=== PATIENT | male | born 1960 | race American Indian/Alaskan Native ===

== ENCOUNTER 2016-12-04 09:57 | Emergency (ER) | payer SELFPAY ==
[2016-12-04] MEDS ORDERED: ZOFRAN ODT PO ONE (11:05)
--- NOTE | 2016-12-04 11:06 | Emergency Department Report ---
Chief Complaint: Nausea/Vomiting/Diarrhea Stated Complaint: DIARRHEA/DIZZINESS X 1 WK Time Seen by Provider: 12/04/16 11:01 - HPI History of Present Illness: Patient reports N/V/D and lightheadedness that started one week ago - ROS Review of Systems: all other systems are unremarkable except for documentation in HPI - Exam Vital Signs: Vital Signs 12/04/16 10:39 Temperature 97.8 F Pulse Rate 125 H Respiratory 20 Rate Blood Pressure 125/89 O2 Sat by Pulse 100 Oximetry Physical Exam: Gen: well developed and nourished, NAD Abd: soft, nondistended, bowel sounds present, tenderness to palpation RUQ, no rebound, guarding or rigid MSE screening note: Focused history and physical exam performed. Due to findings the following was ordered: antiemetic, laboratory and radiology studies ordered ED Disposition for MSE Condition: Stable
[2016-12-04 11:44] LABS: Basophils % (Auto) 0.8 % (0.0-1.8); Eosinophils % (Auto) 3.3 % (0.0-4.3); Hematocrit 46.3 % (35.5-45.6); Hemoglobin 15.1 gm/dl (11.8-15.2); Mean Corpuscular HGB Conc 33 % (32-34); Mean Corpuscular Hemoglobin 32 pg (28-32); Mean Corpuscular Volume 99 fl (84-94); Platelet Count 165 K/mm3 (140-440); Red Blood Count 4.68 M/mm3 (3.65-5.03); Red Cell Distribution Width 14.1 % (13.2-15.2); White Blood Count 7.7 K/mm3 (4.5-11.0)
--- NOTE | 2016-12-04 11:56 | XRay Report ---
ROUTINE CHEST, TWO VIEWS: HISTORY: Lightheadedness, syncope. The trachea, heart, mediastinal contour, lung caro and bony thorax are unremarkable. IMPRESSION: Unremarkable chest x-ray.
[2016-12-04 12:02] LABS: Bilirubin,Urine NEG (Negative); Blood,Urine NEG (Negative); Ketones,Urine TR mg/dL (Negative); Leukocyte Esterase,Urine MOD (Negative); Nitrite,Urine NEG (Negative)
[2016-12-04 12:12] LABS: Alanine Aminotransferase 68 units/L (7-56); Albumin 3.7 g/dL (3.9-5); Albumin/Globulin Ratio 0.7 %; Alkaline Phosphatase 158 units/L (35-129); Anion Gap 20 mmol/L; Blood Urea Nitrogen 18 mg/dL (9-20); Carbon Dioxide 18 mmol/L (22-30); Chloride 100.4 mmol/L (98-107); Glucose 142 mg/dL (75-100); Potassium 4.3 mmol/L (3.6-5.0); Sodium 134 mmol/L (137-145)
[2016-12-04] MEDS ORDERED: NACL 0.9% 1000 ML 1,000 ML IV ONE (20:12)
[2016-12-04] MEDS ORDERED: ZOFRAN IV ONE (20:12)
[2016-12-04 20:17] VITALS: BP 121/90
--- NOTE | 2016-12-04 20:21 | Emergency Department Report ---
HPI - General Chief Complaint: Nausea/Vomiting/Diarrhea Time Seen by Provider: 12/04/16 20:01 - HPI HPI: This is a 56-year-old Afro-[place] male presents to the emergency department from home with complaint of a one-week history of nausea, vomiting, diarrhea. Or recently started to develop some right-sided abdominal pain. He also has some associated generalized dizziness and weakness. He denies any fever, back pain, dysuria or discharge. The pain is a gas-like pain and intermittent. Patient has a history of cirrhosis, gallstones. He does not have a primary care doctor. He has not taken anything for symptoms prior to presentation as he cannot keep anything down. No recent travel or sick contacts at home. ED Past Medical Hx - Medications Home Medications: Home Medications Medication Instructions Recorded Confirmed Last Taken Type Ondansetron [Zofran Odt] 4 mg PO Q6H PRN #10 tab.rapdis 12/04/16 Unknown Rx ED Review of Systems ROS: Stated complaint: DIARRHEA/DIZZINESS X 1 WK Other details as noted in HPI Comment: All other systems reviewed and negative Constitutional: denies: chills, fever Eyes: denies: eye pain, eye discharge, vision change ENT: denies: ear pain, throat pain Respiratory: denies: cough, shortness of breath, wheezing Cardiovascular: denies: chest pain, palpitations Gastrointestinal: abdominal pain, nausea, vomiting, diarrhea Genitourinary: denies: urgency, dysuria Musculoskeletal: denies: back pain, joint swelling, arthralgia Skin: denies: rash, lesions Neurological: denies: headache, weakness, paresthesias Physical Exam - Physical Exam Vital Signs: Vital Signs 12/04/16 12/04/16 10:39 20:16 Temperature 97.8 F 98.1 F Pulse Rate 125 H 109 H Respiratory 20 18 Rate Blood Pressure 125/89 Blood Pressure 121/90 [Right] O2 Sat by Pulse 100 98 Oximetry Physical Exam: GENERAL: The patient is well-developed well-nourished. HEENT: Normocephalic. Atraumatic. Extraocular motions are intact. Patient has moist mucous membranes. Pupils equal reactive to light bilateral. NECK: Supple. Trachea is midline. CHEST/LUNGS: Clear to auscultation. There is no respiratory distress noted. HEART/CARDIOVASCULAR: Regular. There is mild tachycardia. There is no gallop rub or murmur. ABDOMEN: Abdomen is soft, nontender. No guarding rebound tenderness. No peritoneal signs. Patient has normal bowel sounds. There is no abdominal distention. SKIN: There is no rash. There is no edema. There is no diaphoresis. NEURO: The patient is awake, alert, and oriented. The patient is cooperative. The patient has no focal neurologic deficits. The patient has normal speech. MUSCULOSKELETAL: There is no tenderness or deformity. There is no limitation range of motion. There is no evidence of acute injury. ED Course Vital Signs 12/04/16 12/04/16 10:39 20:16 Temperature 97.8 F 98.1 F Pulse Rate 125 H 109 H Respiratory 20 18 Rate Blood Pressure 125/89 Blood Pressure 121/90 [Right] O2 Sat by Pulse 100 98 Oximetry ED Medical Decision Making - Lab Data Result diagrams: 12/04/16 11:31 12/04/16 11:31 - Radiology Data Radiology results: image reviewed interpreted by me: Chest x-ray did not show any acute process. Heart is normal shape and size. No effusions. No pneumothorax. No signs of pneumonia seen. Abdominal x-ray does not show any signs of obstruction or any acute process. - Medical Decision Making 56-year-old male presents with a one-week history of nausea, vomiting and diarrhea. He has some mild abdominal discomfort. Patient's labs show slight elevation in his transaminase and lipase but I believe this is secondary to the copious vomiting he has. Patient presents with some tachycardia that is most likely secondary to dehydration. Patient was given Zofran for nausea and IV fluid resuscitation. Upon reevaluation the patient's heart rate has normalized and the patient no longer complains of any nausea and there has been no vomiting within the emergency department. There is also not been any episodes of diarrhea. Vitals have been stable including being afebrile. Labs did not show any leukocytosis. Urinalysis does not show any infection or significant amount of ketones. Patient was able to drink 2 different glasses of water and keep it down without any vomiting or recurrence of the nausea. He'll be discharged home with Zofran ODT, referrals for primary care. We have discussed increasing oral rehydration and starting with the brat diet once he is wanting to eat. - Differential Diagnosis gastroenteritis, colitis, food poisoning, gastritis Critical Care Time: No Critical care attestation.: If time is entered above; I have spent that time in minutes in the direct care of this critically ill patient, excluding procedure time. ED Disposition Clinical Impression: Dehydration Nausea & vomiting Qualifiers: Vomiting type: unspecified Vomiting Intractability: non-intractable Qualified Code(s): R11.2 - Nausea with vomiting, unspecified Diarrhea Qualifiers: Diarrhea type: unspecified type Qualified Code(s): R19.7 - Diarrhea, unspecified Abdominal pain Qualifiers: Abdominal location: unspecified location Qualified Code(s): R10.9 - Unspecified abdominal pain Abdominal pain Qualifiers: Abdominal location: unspecified location Qualified Code(s): R10.9 - Unspecified abdominal pain Disposition: DISCHARGED TO HOME OR SELFCARE Is pt being admited?: No Does the pt Need Aspirin: No Condition: Stable Instructions: Abdominal Pain (ED), Acute Nausea and Vomiting (ED), Acute Diarrhea (ED), Dehydration (ED) Additional Instructions: Please increase your oral rehydration. Once you are wanting to start eating again, I suggest staying away from foods that are spicy, fried or harsh on the stomach. Instead try things like bananas, rice, applesauce and toast. Return to the emergency department with any worsening of your symptoms or any acute distress. Prescriptions: Ondansetron [Zofran Odt] 4 mg PO Q6H PRN #10 tab.rapdis PRN Reason: Nausea Referrals: PRIMARY MD AMY [Primary Care Provider] - 3-5 Days LIA CHRISTENSEN MD [Staff Physician] - 3-5 Days [facility] [Outside] - 3-5 Days Time of Disposition: 22:41
--- NOTE | 2016-12-05 08:01 | XRay Report ---
ABDOMEN TWO VIEWS: History: Abdominal pain, vomiting, diarrhea. There is no evidence of free air beneath the diaphragms. The gas pattern within the abdomen is unremarkable. There is no evidence of bowel dilatation, significant air-fluid levels, or masses. The psoas margins are adequately visualized. IMPRESSION: Unremarkable abdomen.
== END 2016-12-04 22:58 | disposition home or self-care (01) ==
LOC: ED 09:57
DX: E86.0 Dehydration (principal); R11.2 Nausea with vomiting, unspecified; R19.7 Diarrhea, unspecified; R10.9 Unspecified abdominal pain
CPT/HCPCS: 36415; 71020; 74020; 80053; 81001; 83690; 84484; 85025; 96361; 96374; 99285; J2405; J7030; Q0162

== ENCOUNTER 2019-01-08 11:58 | Emergency (ER) | payer SELFPAY ==
[2019-01-08] MEDS ORDERED: SUBLIMAZE IV ONE (12:42)
[2019-01-08] MEDS ORDERED: NACL 0.9% 1000 ML 1,000 ML IV ONE (12:42)
--- NOTE | 2019-01-08 12:43 | Emergency Department Report ---
ED General Adult HPI - General Chief complaint: Abdominal Pain Stated complaint: RIGHT SIDE PAIN RADIATING TO BACK Time Seen by Provider: 01/08/19 12:25 Source: patient, EMS (ems notes not available at time of chart dictation), RN notes reviewed, old records reviewed Mode of arrival: Stretcher Limitations: No Limitations - History of Present Illness Initial comments: This is a 58-year-old gentleman is not known to this provider previously. He reports a history of kidney stones and cirrhosis. The patient presents to the emergency room with a complaint of nontraumatic right sacroiliac pain, right gluteal pain, and right flank abdominal pain. His pain is sharp and aching, present for 7 days, intermittent, radiates from the flank to the gluteal region and backup, increases with palpation and decreases with rest. He endorses dark colored urine. He denies severe headache, neck pain, chest pain, left-sided abdominal pain, fevers, chills, vomiting, dysuria. The patient's not sure if he is taking any pain medication. There is no trauma. The patient is somewhat of a poor historian and somewhat disorganized. -: Gradual Location: abdomen, right, lower extremity Radiation: extremity Severity scale (0 -10): 8 Quality: aching Consistency: other Improves with: other Worsens with: other Associated Symptoms: loss of appetite, other. denies: confusion, chest pain, cough, diaphoresis, fever/chills, headaches, malaise, nausea/vomiting, rash, seizure, shortness of breath, syncope, weakness - Related Data Previous Rx's Medication Instructions Recorded Last Taken Type Ibuprofen [Motrin] 600 mg PO Q8H PRN #30 tablet 01/08/19 Unknown Rx Magnesium Oxide 400 mg PO QDAY #14 tablet 01/08/19 Unknown Rx Potassium Chloride 20 meq PO BID #28 packet 01/08/19 Unknown Rx levoFLOXacin [Levaquin] 750 mg PO QDAY #6 tablet 01/08/19 Unknown Rx Allergies Allergy/AdvReac Type Severity Reaction Status Date / Time No Known Allergies Allergy Unverified 12/04/16 11:12 ED Review of Systems ROS: Stated complaint: RIGHT SIDE PAIN RADIATING TO BACK Other details as noted in HPI Constitutional: denies: fever Eyes: denies: vision change ENT: denies: epistaxis Respiratory: denies: cough Cardiovascular: denies: chest pain Gastrointestinal: abdominal pain Genitourinary: hematuria Musculoskeletal: back pain, arthralgia Neurological: denies: as per HPI, headache Psychiatric: anxiety ED Past Medical Hx - Past Medical History Previous Medical History?: Yes Hx Kidney Stones: Yes Additional medical history: Hx of gallstones, cirrhosis of the liver - Surgical History Past Surgical History?: No - Social History Smoking Status: Current Every Day Smoker Substance Use Type: Alcohol - Medications Home Medications: Home Medications Medication Instructions Recorded Confirmed Last Taken Type Ibuprofen [Motrin] 600 mg PO Q8H PRN #30 tablet 01/08/19 Unknown Rx Magnesium Oxide 400 mg PO QDAY #14 tablet 01/08/19 Unknown Rx Potassium Chloride 20 meq PO BID #28 packet 01/08/19 Unknown Rx levoFLOXacin [Levaquin] 750 mg PO QDAY #6 tablet 01/08/19 Unknown Rx ED Physical Exam - General Limitations: No Limitations General appearance: alert, anxious - Head Head exam: Present: atraumatic, normocephalic - Eye Eye exam: Present: normal appearance, EOMI. Absent: nystagmus - ENT ENT exam: Present: normal exam, normal orophraynx, mucous membranes moist, normal external ear exam - Neck Neck exam: Present: normal inspection, full ROM. Absent: tenderness, meningismus - Respiratory Respiratory exam: Present: normal lung sounds bilaterally. Absent: respiratory distress, wheezes, rales, rhonchi, stridor, chest wall tenderness - Cardiovascular Cardiovascular Exam: Present: normal rhythm, tachycardia, normal heart sounds. Absent: systolic murmur, diastolic murmur, rubs, gallop - GI/Abdominal GI/Abdominal exam: Present: soft, tenderness, other (there is right flank tenderness, minimal, with no rebound, guarding or peritoneal signs). Absent: distended, guarding, rebound, rigid, pulsatile mass - Rectal Rectal exam: Present: normal inspection, other (gluteal compartment soft. There is reproducible right sided sacroiliac tenderness, with no redness, pus, streaking. Chaperoned by Alvina Montanez) - Extremities Exam Extremities exam: Present: normal inspection, full ROM, other (2+ pulses noted in the bilateral upper, lower extremities. Compartments soft. No long bony tenderness. The pelvis is stable.). Absent: pedal edema, joint swelling, calf tenderness - Back Exam Back exam: Present: normal inspection, full ROM, paraspinal tenderness. Absent: tenderness, CVA tenderness (R), vertebral tenderness - Neurological Exam Neurological exam: Present: alert, CN II-XII intact, other (Extraocular movements intact. Tongue midline. No facial droop. Facial sensation intact to light touch in the V1, V2, V3 distribution bilaterally. 5 and 5 strength in 4 extremities.. Sensation is intact to light touch in 4 extremities.). Absent: motor sensory deficit - Psychiatric Psychiatric exam: Present: anxious - Skin Skin exam: Present: warm, dry, intact, normal color. Absent: rash ED Course Vital Signs 01/08/19 01/08/19 01/08/19 12:05 12:08 13:09 Temperature 98.1 F 97.7 F Pulse Rate 101 H 100 H Respiratory 15 16 16 Rate Blood Pressure 98/67 Blood Pressure 98/67 [Right] O2 Sat by Pulse 95 97 Oximetry 01/08/19 01/08/19 01/08/19 13:39 15:49 16:10 Temperature 97.9 F 97.7 F Pulse Rate 70 68 Respiratory 17 18 17 Rate Blood Pressure Blood Pressure 127/98 130/80 [Right] O2 Sat by Pulse 97 97 Oximetry 01/08/19 16:36 Temperature Pulse Rate Respiratory 14 Rate Blood Pressure Blood Pressure [Right] O2 Sat by Pulse Oximetry - Reevaluation(s) Reevaluation #1: 01/08/19 14:10 Differential diagnosis, including not limited to: Sacroiliitis, musculoskeletal gluteal pain, renal colic, nephrolithiasis, biliary colic, colitis, perforated viscus, a urinary tract infection Assessment and plan: 58-year-old gentleman with reproducible right-sided sacroiliac tenderness, and nonspecific abdominal patient afebrile, tachycardic with blood pressure in the high 90s. We will treat the patient's pain, give IV fluids, obtain pelvis x-ray, and CT scan of the abdomen and pelvis. We will kyler ssess after his initial data points. Patient is clinically sober at this time. Urinalysis is reviewed and appreciated. We will determine antibiotic therapy once his diagnostic studies have resulted. 01/08/19 14:11 Reevaluation #2: 01/08/19 18:39 Laboratory studies are reviewed and appreciated. Has transaminitis which we would expect. He is also hypokalemic and hypomagnesemic. His objective imaging does not demonstrate any emergent condition. He is currently eating and tolerating liquid feeds, and indicates that he feels much improved. There is no right upper quadrant tenderness. Patient will be discharged with appropriate pain medication, potassium supplementation, magnesium supplementation, antibiotics, instructions to follow up with an outpatient primary care doctor. Return precautions are reviewed. ED Medical Decision Making - Lab Data Result diagrams: 01/08/19 12:53 01/08/19 13:41 Vital Signs 01/08/19 01/08/19 01/08/19 12:05 12:08 13:09 Temperature 98.1 F 97.7 F Pulse Rate 101 H 100 H Respiratory 15 16 16 Rate Blood Pressure 98/67 Blood Pressure 98/67 [Right] O2 Sat by Pulse 95 97 Oximetry Lab Results 01/08/19 01/08/19 01/08/19 Range/Units 12:44 12:53 13:22 WBC 5.3 (4.5-11.0) K/mm3 RBC 3.66 (3.65-5.03) M/mm3 Hgb 12.8 (11.8-15.2) gm/dl Hct 36.7 (35.5-45.6) % MCV 100 H (84-94) fl MCH 35 H (28-32) pg MCHC 35 H (32-34) % RDW 14.2 (13.2-15.2) % Plt Count 196 (140-440) K/mm3 PT 16.1 H (12.2-14.9) Sec. INR 1.21 H (0.87-1.13) APTT 31.2 (24.2-36.6) Sec. Urine Color Shabnam (Yellow) Urine Turbidity Clear (Clear) Urine pH 5.0 (5.0-7.0) Ur Specific Sterling 1.016 (1.003-1.030) Urine Protein 30 mg/dl (Negative) mg/dL Urine Glucose (UA) Neg (Negative) mg/dL Urine Ketones Tr (Negative) mg/dL Urine Blood Neg (Negative) Urine Nitrite Neg (Negative) Urine Bilirubin Neg (Negative) Urine Urobilinogen 4.0 (<2.0) mg/dL Ur Leukocyte Esterase Mod (Negative) Urine WBC (Auto) 38.0 H (0.0-6.0) /HPF Urine RBC (Auto) 3.0 (0.0-6.0) /HPF U Epithel Cells (Auto) 3.0 (0-13.0) /HPF Urine Bacteria (Auto) 1+ (Negative) /HPF Urine Mucus 1+ /HPF - Radiology Data Radiology results: report reviewed, image reviewed Pelvis x-ray is negative for acute disease. Referring Physician: GABRIELLE LANGSTON Patient Name: ESMER CAMPOS Date of : 1960 Sex: Male Report Date: 2019-01-08 Report Status: Finalized [facility] [address] [place] [address] Cat Scan Report Signed Patient: SEMER CAMPOS MR#: [id number] : 1960 Acct:[id number] Age/Sex: 58 / M ADM Date: 01/08/19 Loc: ED Attending Dr: Ordering Physician: GABRIELLE LANGSTON MD Date of Service: 01/08/19 Procedure(s): CT abdomen pelvis wo/w con Accession Number(s): [id number] cc: GABRIELLE LANGSTON MD CT ABDOMEN PELVIS WITH AND WITHOUT CONTRAST: HISTORY: Flank pain, abdominal pain, right gluteal pain. COMPARISON: none. TECHNIQUE: Helical CT in 1.25mm intervals before and after IV contrast. Sagittal and coronal reconstructions. FINDINGS: Lung bases: Normal. Liver: There is moderate to severe diffuse fatty infiltration throughout the liver. No mass or surface nodularity. Biliary system: The gallbladder is contracted. 2 or 3 small calcified gallstones are identified measuring 5 mm. No biliary dilatation or inflammation. Pancreas: Normal. Spleen: Normal. Kidneys/ureters/bladder: Normal. No evidence for nephrolithiasis. Adrenal glands: Normal. Aorta: Mild diffuse calcifications. No aneurysm or dissection. Intestines: There are scattered diverticula throughout the colon. No evidence for focal inflammation, obvious mass or obstruction. Appendix: Normal. Pelvic viscera: Normal. Ascites: None. Adenopathy: None. Musculoskeletal: Intact. Mild lumbar spondylosis is noted. No abnormality in the gluteal regions. IMPRESSION: Moderate to severe fatty infiltration of the liver. Cholelithiasis. Mild diverticulosis of the colon. No acute processes identified in the abdomen or pelvis. Transcribed By: TTR Dictated By: IMAN TABOR JR, MD Electronically Authenticated By: IMAN TABOR JR, MD Signed Date/Time: 01/08/191515 DD/ 13 TD/TT: 01/08/191515 Critical care attestation.: If time is entered above; I have spent that time in minutes in the direct care of this critically ill patient, excluding procedure time. ED Disposition Clinical Impression: Transaminitis, Sacroiliitis, Hypokalemia, Hypomagnesemia Disposition: - TO HOME OR SELFCARE Is pt being admited?: No Does the pt Need Aspirin: No Condition: Stable Instructions: Sacroiliitis (ED), Hypokalemia (ED), Urinary Tract Infection in Men (ED) Additional Instructions: Cultures were sent today, and results will be available in the next 3-5 days. Have a primary care doctor contact medical records department to obtain culture results. Take medications as needed/directed. Follow up with a primary care doctor within the next 2 weeks. Return to the emergency room right away with new pain, worsening pain, migration of pain, projectile vomiting, change in mental status, confusion, inability to tolerate liquid feeds, new, worsening or different symptoms. Referrals: [facility] [Provider Group] - 7-10 days [facility] [Provider Group] - 7-10 days
[2019-01-08 12:59] LABS: Bacteria,Urine 1+ /HPF (Negative); Bilirubin,Urine NEG (Negative); Blood,Urine NEG (Negative); Color,Urine Amber (Yellow); Mucus,Urine 1+ /HPF
[2019-01-08 13:04] LABS: Hematocrit 36.7 % (35.5-45.6); Hemoglobin 12.8 gm/dl (11.8-15.2); Mean Corpuscular HGB Conc 35 % (32-34); Mean Corpuscular Volume 100 fl (84-94); Red Blood Count 3.66 M/mm3 (3.65-5.03); Red Cell Distribution Width 14.2 % (13.2-15.2)
--- NOTE | 2019-01-08 13:28 | XRay Report ---
AP PELVIS: HISTORY: Hip pain, sacroiliac pain. AP view of the pelvis shows normal pelvic contour and soft tissues. The hips are symmetric and within normal limits as are the sacroiliac joints. IMPRESSION: Unremarkable pelvis.
[2019-01-08 13:37] LABS: Platelet Count 196 K/mm3 (140-440)
[2019-01-08 13:47] LABS: INR 1.21 (0.87-1.13)
[2019-01-08 13:48] LABS: Partial Thromboplastin Time 31.2 Sec. (24.2-36.6)
[2019-01-08 14:22] LABS: Alanine Aminotransferase 101 units/L (7-56); Albumin 2.4 g/dL (3.9-5); BUN/Creatinine Ratio 13; Blood Urea Nitrogen 9 mg/dL (9-20); Calcium 7.6 mg/dL (8.4-10.2); Hemolysis Index 30
[2019-01-08] MEDS ORDERED: K-DUR PO ONE (14:32)
[2019-01-08] MEDS ORDERED: ROCEPHIN/NS 1 GM/50 ML 1 GM/50 ML BAG IV ONE (14:32)
--- NOTE | 2019-01-08 15:19 | Cat Scan Report ---
CT ABDOMEN PELVIS WITH AND WITHOUT CONTRAST: HISTORY: Flank pain, abdominal pain, right gluteal pain. COMPARISON: none. TECHNIQUE: Helical CT in 1.25mm intervals before and after IV contrast. Sagittal and coronal reconstructions. FINDINGS: Lung bases: Normal. Liver: There is moderate to severe diffuse fatty infiltration throughout the liver. No mass or surface nodularity. Biliary system: The gallbladder is contracted. 2 or 3 small calcified gallstones are identified measuring 5 mm. No biliary dilatation or inflammation. Pancreas: Normal. Spleen: Normal. Kidneys/ureters/bladder: Normal. No evidence for nephrolithiasis. Adrenal glands: Normal. Aorta: Mild diffuse calcifications. No aneurysm or dissection. Intestines: There are scattered diverticula throughout the colon. No evidence for focal inflammation, obvious mass or obstruction. Appendix: Normal. Pelvic viscera: Normal. Ascites: None. Adenopathy: None. Musculoskeletal: Intact. Mild lumbar spondylosis is noted. No abnormality in the gluteal regions. IMPRESSION: Moderate to severe fatty infiltration of the liver. Cholelithiasis. Mild diverticulosis of the colon. No acute processes identified in the abdomen or pelvis.
[2019-01-08] MEDS: KCL 10MEQ/100ML 10 MEQ/100 ML BAG IV SCH ×2 (15:30→16:30)
[2019-01-08] MEDS ORDERED: MAGNESIUM SULFATE 2GM/50ML 2 GM/50 ML BAG IV ONE (15:38)
[2019-01-08] MEDS ORDERED: TORADOL IV ONE (15:46)
[2019-01-08] MEDS ORDERED: MAG-OX PO ONE (16:00)
[2019-01-08] MEDS ORDERED: NACL 0.9% 1000 ML 1,000 ML ONE (16:03)
[2019-01-08 19:45] VITALS: BP 112/67
== END 2019-01-08 19:26 | disposition home or self-care (01) ==
LOC: ED 11:58
DX: M46.1 Sacroiliitis, not elsewhere classified (principal); E87.6 Hypokalemia; E83.42 Hypomagnesemia; R74.0 Nonspecific elevation of levels of transaminase and lactic acid dehydrogenase [LDH]; Z87.442 Personal history of urinary calculi; F17.200 Nicotine dependence, unspecified, uncomplicated; Z87.19 Personal history of other diseases of the digestive system
CPT/HCPCS: 36415; 72170; 74178; 80053; 81001; 82550; 83690; 83735; 85027; 85610; 85730; 87086; 96361; 96365; 96367; 96375; 99285; J0696; J1885; J3010; J3475; J3480; J7030; Q9967

== ENCOUNTER 2019-08-06 21:25 | Emergency (ER) | payer SELFPAY ==
--- NOTE | 2019-08-06 22:01 | Emergency Department Report ---
Blank Doc - Documentation Documentation: 58-year-old male that presents with right finger pain. This initial assessment/diagnostic orders/clinical plan/treatment(s) is/are subject to change based on patient's health status, clinical progression and re- assessment by fellow clinical providers in the ED. Further treatment and workup at subsequent clinical providers discretion. Patient/guardians urged not to elope from the ED as their condition may be serious if not clinically assessed and managed. Initial orders include: 1- Patient sent to [facility] for further evaluation and treatment 2- xrays
--- NOTE | 2019-08-06 22:57 | XRay Report ---
HISTORY:hand pain COMPARISON: None. TECHNIQUE: 2 views FINDINGS: Bones: Dislocation of the PIP articulation fifth digit is present Joint spaces: Maintained. Soft tissues: No significant abnormality. Additional findings: None. IMPRESSION: 1. Dislocation involving the fifth digit Signer Name: Nader Sethi MD Signed: 08/06/2019 10:52 PM Workstation Name: [id number]
[2019-08-06] MEDS ORDERED: XYLOCAINE 1% MPF 5 mL INFILTRATI ONE (23:18)
[2019-08-06] MEDS ORDERED: PERCOCET 5/325 PO PRN (23:18)
[2019-08-06] MEDS ORDERED: IBUPROFEN PO ONE (23:18)
[2019-08-06] MEDS ORDERED: ZOFRAN ODT PO ONE (23:18)
--- NOTE | 2019-08-07 02:09 | Emergency Department Report ---
Upper Extremity - HPI Chief Complaint: Extremity Injury, Upper Stated Complaint: BROKEN PINKY FINGER ON RT HAND Time Seen by Provider: 08/06/19 22:02 Upper Extremity: Right Little Finger (dislocation, deformity and pain) Occurred When: Today Mechanism: Twist Severity: severe Symptoms: Yes Pain with Movement, Yes Deformity, Yes Limited Range of Movement, No Numbness, No Weakness, No Swelling, No Bruising/Ecchymosis, No Laceration or Abrasion Other History: Patient is a 58-year-old -[place] male with no past m edical history presents to the ED with complaint of acute onset persistent painful right fifth finger deformity after heavy lifting of heavy furniture about 4 hours ago. Patient stated that he was helping lift up furniture when one of the findings just pushed his right fifth finger laterally causing the deformity. Patient denies numbness or tingling or weakness of the right hand or right small finger. ED Review of Systems ROS: Stated complaint: BROKEN PINKY FINGER ON RT HAND Other details as noted in HPI Constitutional: denies: chills, fever Eyes: denies: eye pain, eye discharge, vision change ENT: denies: ear pain, throat pain Respiratory: denies: cough, shortness of breath, wheezing Cardiovascular: denies: chest pain, palpitations Endocrine: no symptoms reported Gastrointestinal: denies: abdominal pain, nausea, diarrhea Genitourinary: denies: urgency, dysuria Musculoskeletal: joint swelling (right 5th finger PIP joint deformity), arthralgia (right 5th finger pain, swelling and deformity), myalgia. denies: back pain Skin: denies: rash, lesions Neurological: denies: headache, weakness, paresthesias Psychiatric: denies: anxiety, depression Hematological/Lymphatic: denies: easy bleeding, easy bruising ED Past Medical Hx - Past Medical History Previous Medical History?: Yes Hx Kidney Stones: Yes Additional medical history: Hx of gallstones, cirrhosis of the liver - Social History Smoking Status: Current Every Day Smoker Substance Use Type: Alcohol - Medications Home Medications: Home Medications Medication Instructions Recorded Confirmed Last Taken Type Magnesium Oxide 400 mg PO QDAY #14 tablet 01/08/19 Unknown Rx Potassium Chloride 20 meq PO BID #28 packet 01/08/19 Unknown Rx levoFLOXacin [Levaquin] 750 mg PO QDAY #6 tablet 01/08/19 Unknown Rx Cyclobenzaprine [Flexeril] 10 mg PO Q8H PRN #15 tablet 08/07/19 Unknown Rx Ibuprofen [Motrin 600 MG tab] 600 mg PO Q8H PRN #20 tablet 08/07/19 Unknown Rx Upper Extremity Exam - Exam General: Vital signs noted. No distress. Alert and acting appropriately. Head and Torso: No HEENT Abnormality, No Neck Tenderness, No Chest/Lungs Abnormality, No Abdominal Tenderness, No Back Tenderness Shoulder Exam: Yes Normal Range of Motion in Shoulder, No Shoulder Tenderness, No Clavicle Tenderness, No Shoulder Deformity, No AC Joint Tenderness Arm Exam: No Arm/Humerus Tenderness, No Arm Deformity Elbow: No Elbow Tenderness, No Normal Range of Motion in Elbow, No Elbow Deformity Forearm: No Forearm Tenderness, No Forearm Deformity, No Pain with Pronation, No Pain with Supination Wrist: Yes Normal ROM in Wrist, No Wrist Tenderness, No Wrist Deformity, No Snuffbox Tenderness, No Pain with Axial Thumb Compression Hand: Yes Digit Tenderness (right 5th digit), Yes Normal ROM in Digit(s), Yes Digit(s) Deformity (right 5th digit at PIP joint), No Hand Tenderness, No Hand Deformity, No Tendon Dysfunction CMS Exam: No Broken Skin, No Normal Distal Pulses, No Normal Capillary Refill, No Normal Distal Sensation Hand L/R Front: 1 - Swollen tenderness and deformity at the PIP joint Hand L/R Back: 1 - Swollen, deformed and tender at the PIP joint ED Course Vital Signs 08/06/19 22:13 Temperature 98.2 F Pulse Rate 92 H Respiratory 18 Rate Blood Pressure 147/89 O2 Sat by Pulse 97 Oximetry - Reevaluation(s) Reevaluation #1: 08/07/19 02:09 This is a 58-year-old male who presented to the ED with painful deformed right small finger after heavy lifting. The ED, patient is alert and oriented 3 and is not in distress. The right hand x-ray shows dislocation of the right fifth digit at the PIP joint. Patient was treated for pain in the ED and the dislocated right small finger was reduced after application of local anesthetic lidocaine 1% solution. Patient tolerated the procedure well. The postreduction x-ray shows normal alignment and the patient's right small finger is neurovascularly intact. The patient right small finger was splinted with a finger splint and the patient discharged home on pain medications and given a referral to the orthopedic surgeon industrial relations representative Dr. Avendano for follow-up. Patient is advised to contact Dr. Avendano's office first thing in the morning to schedule an appointment. Patient was advised to return to the ED immediately if symptoms get worse. 08/07/19 02:10 - Orthopedic Joint Reduction Joint #1 Consent Obtained: verbal consent Time Out Performed: Yes Side: right Joint Reduction Location: finger (right 5th finger) Analgesia: digital block Local Anesthetic Used: Lidocaine 1% Amount of Anesthetic Used (mls): 5 Technique Used: traction/counter-traction Post-Reduction Neuro Exam: intact Post-Reduction Vascular Exam: intact Post Reduction X-Ray Obtained: Yes (Normal alignment) Post Reduction X-Ray Results: reduced Splint Applied: Yes (Finger spica splint) Patient Tolerated Procedure: well ED Medical Decision Making - Radiology Data Radiology results: report reviewed, image reviewed The right hand x-ray shows dislocation involving the right fifth digit at the PIP joint - Medical Decision Making This is a 58-year-old male who presented to the ED with painful deformed right small finger after heavy lifting. The ED, patient is alert and oriented 3 and is not in distress. The right hand x-ray shows dislocation of the right fifth digit at the PIP joint. Patient was treated for pain in the ED and the dislocated right small finger was reduced after application of local anesthetic lidocaine 1% solution. Patient tolerated the procedure well. The postreduction x-ray shows normal alignment and the patient's right small finger is neurovascularly intact. The patient right small finger was splinted with a finger splint and the patient discharged home on pain medications and given a referral to the orthopedic surgeon industrial relations representative Dr. Avendano for follow-up. Patient is advised to contact Dr. Avendano's office first thing in the morning to schedule an appointment. Patient was advised to return to the ED immediately if symptoms get worse. - Differential Diagnosis finger dislocation; finger fracture; finger sprain Critical care attestation.: If time is entered above; I have spent that time in minutes in the direct care of this critically ill patient, excluding procedure time. ED Disposition Clinical Impression: Dislocation of right little finger Qualifiers: Encounter type: initial encounter Qualified Code(s): S63.256A - Unspecified dislocation of right little finger, initial encounter Sprain of right little finger Qualifiers: Encounter type: initial encounter Sprain of finger site: unspecified site Qualified Code(s): S63.616A - Unspecified sprain of right little finger, initial encounter Disposition: TO HOME OR SELFCARE Is pt being admited?: No Does the pt Need Aspirin: No Condition: Stable Instructions: Finger Sprain (ED), Finger Dislocation (ED) Additional Instructions: Take medication with food, drink plenty of fluids and follow-up with the orthopedic surgeon Dr. Avendano for further evaluation and follow-up. Contact Dr. Avendano's office first thing in the morning to schedule an appointment for follow-up. Return to the ED immediately if symptoms get worse. Prescriptions: Cyclobenzaprine [Flexeril] 10 mg PO Q8H PRN #15 tablet PRN Reason: Muscle Spasm Ibuprofen [Motrin 600 MG tab] 600 mg PO Q8H PRN #20 tablet PRN Reason: Pain Referrals: PRIMARY CARE, [Primary Care Provider] - 3-5 Days Time of Disposition: 02:16 Print Language: ESTONIAN
[2019-08-07 02:34] VITALS: BP 122/78
--- NOTE | 2019-08-07 03:25 | XRay Report ---
RIGHT HAND 1 VIEW 0150 INDICATION: PAIN SP REDUCTION COMPARISON: 08/06/2019 2222 FINDINGS: On this single view the prior dislocation at the proximal interphalangeal joint of the wilmer le finger appears to have been reduced. Tiny bony fragments are seen along the medial margin of the d istal aspect of the proximal phalanx which could represent tiny avulsions. Signer Name: Stoney Thomas MD Signed: 08/07/2019 3:20 AM Workstation Name: [id number]
== END 2019-08-07 02:34 | disposition home or self-care (01) ==
LOC: ED 21:25
DX: S63.256A Unspecified dislocation of right little finger, initial encounter (principal); F17.200 Nicotine dependence, unspecified, uncomplicated; Z87.442 Personal history of urinary calculi; Z79.1 Long term (current) use of non-steroidal anti-inflammatories (NSAID); Z79.899 Other long term (current) drug therapy; X50.0XXA Overexertion from strenuous movement or load, initial encounter; Y93.89 Activity, other specified; Y92.89 Other specified places as the place of occurrence of the external cause; Y99.8 Other external cause status
CPT/HCPCS: Q0162

== ENCOUNTER 2019-09-22 16:41 | Emergency (ER) | payer SELFPAY ==
--- NOTE | 2019-09-22 17:35 | Emergency Department Report ---
Blank Doc - Documentation Documentation: This is a 58-year-old male that presents with chest pain and SOB. Stated pain radiates to right back. Hypotension, tachycardia, and tacypnea noted. This initial assessment/diagnostic orders/clinical plan/treatment(s) is/are subject to change based on patient's health status, clinical progression and re- assessment by fellow clinical providers in the ED. Further treatment and workup at subsequent clinical providers discretion. Patient/guardians urged not to elope from the ED as their condition may be serious if not clinically assessed and managed. Initial orders include: 1- Patient sent to MAIN ED for further evaluation and treatment 2- labs 3- EKG 4- CXR 5- group burner machine notified to have patient brought back [facility]
--- NOTE | 2019-09-22 18:01 | XRay Report ---
CHEST 1 VIEW 09/22/2019 5:49 PM INDICATION / CLINICAL INFORMATION: Chest Pain. COMPARISON: Chest x-ray on 12/04/2016. FINDINGS: SUPPORT DEVICES: None. HEART / MEDIASTINUM: Normal heart size. Atherosclerosis in the thoracic aorta. LUNGS / PLEURA: Slight pulmonary underexpansion without focal consolidation or pleural effusion. No p neumothorax. ADDITIONAL FINDINGS: No significant additional findings. IMPRESSION: 1. No acute findings. Signer Name: Robinson Avina MD Signed: 09/22/2019 5:57 PM Workstation Name: [id number]
[2019-09-22 19:18] LABS: INR 1.36 (0.87-1.13); Partial Thromboplastin Time 29.8 Sec. (24.2-36.6)
--- NOTE | 2019-09-22 19:23 | Emergency Department Report ---
ED General Adult HPI - General Chief complaint: Chest Pain Stated complaint: CHEST PAIN/RT PINKY INJURY/PAIN Time Seen by Provider: 09/22/19 17:33 Source: patient Mode of arrival: Ambulatory Limitations: No Limitations - History of Present Illness Initial comments: A 58-year-old -[place]ian male, alcoholic with current history of active cirrhosis presents emergency department complaining of chest pain to the right chest which starts in the right rib and radiates to the right pectoral region since repeat exam. Pain is worse with coughing and deep breaths and range of motion. Reports no numbness or tingling. No fevers, chills, sweats no palp itations, no nausea, no vomiting, no hemoptysis, no hematemesis, no hematochezia. Location: chest Radiation: non-radiation Quality: dull Consistency: constant Improves with: none Worsens with: none Associated Symptoms: cough Treatments Prior to Arrival: none - Related Data Previous Rx's Medication Instructions Recorded Last Taken Type guaiFENesin/CODEINE [Robitussin AC] 5 ml PO Q6H PRN #120 ml 09/23/19 Unknown Rx Allergies Allergy/AdvReac Type Severity Reaction Status Date / Time No Known Allergies Allergy Unverified 12/04/16 11:12 ED Review of Systems ROS: Stated complaint: CHEST PAIN/RT PINKY INJURY/PAIN Other details as noted in HPI Comment: All other systems reviewed and negative ED Past Medical Hx - Past Medical History Hx Kidney Stones: Yes Additional medical history: Hx of gallstones, cirrhosis of the liver - Surgical History Past Surgical History?: No - Social History Smoking Status: Current Every Day Smoker Substance Use Type: Alcohol - Medications Home Medications: Home Medications Medication Instructions Recorded Confirmed Last Taken Type guaiFENesin/CODEINE [Robitussin AC] 5 ml PO Q6H PRN #120 ml 09/23/19 Unknown Rx ED Physical Exam - General Limitations: No Limitations General appearance: alert, in no apparent distress - Head Head exam: Present: atraumatic, normocephalic - Eye Eye exam: Present: normal appearance, PERRL, EOMI Pupils: Present: normal accommodation - ENT ENT exam: Present: mucous membranes moist - Neck Neck exam: Present: normal inspection, full ROM - Respiratory Respiratory exam: Present: normal lung sounds bilaterally. Absent: respiratory distress - Cardiovascular Cardiovascular Exam: Present: regular rate, normal rhythm. Absent: systolic murmur, diastolic murmur, rubs, gallop - GI/Abdominal GI/Abdominal exam: Present: soft, normal bowel sounds, other (no fluid wave noted, no caput medusa and abdomen is not distended). Absent: tenderness, gua rding, rebound - Rectal Rectal exam: Present: deferred - Extremities Exam Extremities exam: Present: normal inspection, tenderness (assessment as to his right fifth digit which is has now swelling and still and a aluminum splint. Capillary refills are are brisk lightthis) - Back Exam Back exam: Present: normal inspection, full ROM. Absent: CVA tenderness (R), CVA tenderness (L) - Neurological Exam Neurological exam: Present: alert, oriented X3, CN II-XII intact, normal gait - Psychiatric Psychiatric exam: Present: normal affect, normal mood - Skin Skin exam: Present: warm, dry, intact, normal color. Absent: rash ED Course Vital Signs 09/22/19 09/22/19 09/22/19 17:33 19:15 19:30 Temperature 98.6 F 98.9 F Pulse Rate 116 H 88 85 Respiratory 22 18 19 Rate Blood Pressure 92/59 127/75 Blood Pressure 129/77 [Left] O2 Sat by Pulse 98 96 97 Oximetry 09/22/19 09/22/19 09/22/19 20:00 20:30 21:00 Temperature Pulse Rate 85 82 86 Respiratory 11 L 12 12 Rate Blood Pressure 131/73 127/74 133/80 Blood Pressure [Left] O2 Sat by Pulse 97 98 98 Oximetry 09/22/19 09/22/19 09/22/19 21:31 22:30 23:00 Temperature Pulse Rate 90 77 79 Respiratory 24 20 25 H Rate Blood Pressure 133/80 144/81 141/82 Blood Pressure [Left] O2 Sat by Pulse 95 97 97 Oximetry 09/22/19 09/23/19 09/23/19 23:30 00:00 00:30 Temperature Pulse Rate 74 78 78 Respiratory 16 17 13 Rate Blood Pressure 138/82 143/82 138/84 Blood Pressure [Left] O2 Sat by Pulse 98 97 97 Oximetry 09/23/19 09/23/19 09/23/19 01:00 01:30 02:00 Temperature Pulse Rate 75 74 75 Respiratory 14 16 21 Rate Blood Pressure 134/79 135/81 127/80 Blood Pressure [Left] O2 Sat by Pulse 97 96 96 Oximetry ED Medical Decision Making - Lab Data Result diagrams: 09/22/19 18:55 09/22/19 18:55 - EKG Data EKG shows normal: sinus rhythm Rate: tachycardia - EKG Data Interpretation: no acute changes, other (sinus tachycardia) - Radiology Data Radiology results: report reviewed XRay Report Signed Patient: ESMER CAMPOS MR#: [id number] : 1960 Acct:[id number] Age/Sex: 58 / M ADM Date: 09/22/19 Loc: ED Attending Dr: Ordering Physician: SARAH BRINK NP Date of Service: 09/22/19 Procedure(s): XR chest routine 2V Accession Number(s): [id number] cc: SARAH BRINK NP Fluoro Time In Minutes: CHEST 1 VIEW 09/22/2019 5:49 PM INDICATION / CLINICAL INFORMATION: Chest Pain. COMPARISON: Chest x-ray on 12/04/2016. FINDINGS: SUPPORT DEVICES: None. HEART / MEDIASTINUM: Normal heart size. Atherosclerosis in the thoracic aorta. LUNGS / PLEURA: Slight pulmonary underexpansion without focal consolidation or pleural effusion. No pneumothorax. ADDITIONAL FINDINGS: No significant additional findings. IMPRESSION: 1. No acute findings. Signer Name: Robinson Avina MD Signed: 09/22/2019 5:57 PM Workstation Name: [id number] Transcribed By: SAMMY Dictated By: Robinson Avina MD Electronically Authenticated By: Robinson Avina MD Signed Date/Time: 09/22/[address] [facility] [address] [place] [address] Cat Scan Report Signed Patient: ESMER CAMPOS MR#: [id number] : 1960 Acct:[id number] Age/Sex: 58 / M ADM Date: 09/22/19 Loc: ED Attending Dr: Ordering Physician: JAYSON VIGIL Date of Service: 09/22/19 Procedure(s): CT angio chest Accession Number(s): [id number] cc: JAYSON VIGIL CTA CHEST WITH IV CONTRAST INDICATION: chest pain and elevated dimer CONTRAST: 100 cc Omnipaque 350 IV COMPARISON: Chest x-ray tonight Three-plane MIP reconstructions were produced. All CT scans at this location are performed using CT dose reduction for ALARA by means of automated exposure control. FINDINGS: No significant axillary or chest wall abnormalities are seen. No mediastinal or hilar masses are noted. Mild coronary artery calcifications are seen. No significant pleural effusions are seen. Bibasilar atelectatic changes are noted. No pneumothorax or pneumomediastinum are seen. Mild was changes are noted. No definite areas of consolidation are seen. No pulmonary nodules or masses are noted. Aorta shows mild atherosclerotic changes but no aneurysmal dilatation or evidence of dissection. Good opacification of the pulmonary arterial system was achieved. I do not see convincing evidence of pulmonary thromboembolism. IMPRESSION: No significant acute abnormalities are seen Signer Name: Stoney Thomas MD Signed: 09/23/2019 12:45 AM Workstation Name: [id number] Transcribed By: GJ Dictated By: Stoney Thomas MD Electronically Authenticated By: Stoney Thoams MD Signed Date/Time: 09/23/19 004 DD/ 0039 TD/TT: - Medical Decision Making 58-year-old -[place]ian male with past medical history of alcoholism since emergency department complaining of cough And congestion and chest ache. Cardiac enzymes were normal as well as his EKG his d-dimer was slightly elevated but CT angios showed no acute processes. He also had concerns about a pre- existing fifth digit fracture which she has not yet followed up with left low but has been using in the sternal and on and has some mild swelling. No numbness or tingling noted. The patient is resting in no acute distress speaking in full sentences. He's been encouraged to follow with the woodwork salvage inspector and primary care provider in regards to his chest pain and cough and also advised to follow with orthopedic for his finger. Critical care attestation.: If time is entered above; I have spent that time in minutes in the direct care of this critically ill patient, excluding procedure time. ED Disposition Clinical Impression: Chest pain, Cough, Finger pain, right Disposition: DC-01 TO HOME OR SELFCARE Is pt being admited?: No Does the pt Need Aspirin: No Condition: Stable Instructions: Chest Pain (ED), Cold Symptoms (ED), Ice Pack Application (ED), RICE Therapy (ED), Abuse of Alcohol (ED) Additional Instructions: Please be sure to continue to ice her fingers were discussed and be sure to follow with orthopedic and she was advised to do previously. Also follow up with primary care provider for reevaluation of the chest pain and cough CAT scan and chest x-ray were normal today Referrals: PRIMARY CARE, [Primary Care Provider] - 3-5 Days TOMMIE WALTON MD [Staff Physician] - 3-5 Days (Please follow up with. Her orthopedic physician sd mott) [facility] [Provider Group] - 2-3 Days
[2019-09-22 19:30] LABS: Basophils % (Auto) 0.7 % (0.0-1.8); Eosinophils % (Auto) 0.9 % (0.0-4.3); Hematocrit 31.3 % (35.5-45.6); Hemoglobin 10.3 gm/dl (11.8-15.2); Lymphocytes # (Auto) 0.8 K/mm3 (1.2-5.4); Lymphocytes % (Auto) 19.4 % (13.4-35.0); Mean Corpuscular HGB Conc 33 % (32-34); Mean Corpuscular Volume 103 fl (84-94); Monocytes # (Auto) 0.7 K/mm3 (0.0-0.8); Monocytes % (Auto) 15.5 % (0.0-7.3); Red Blood Count 3.04 M/mm3 (3.65-5.03); Red Cell Distribution Width 14.2 % (13.2-15.2)
[2019-09-22 20:19] LABS: BUN/Creatinine Ratio 15; Blood Urea Nitrogen 9 mg/dL (9-20); Calcium 8.3 mg/dL (8.4-10.2); Hemolysis Index 17
[2019-09-22 20:43] LABS: Platelet Count 58 K/mm3 (140-440)
[2019-09-22 22:50] LABS: Amphetamine Screen,Urine PRESUMPTIVE NEGATIVE; Benzodiazepines Screen,Urine PRESUMPTIVE NEGATIVE; Cannabinoid Screen,Urine PRESUMPTIVE NEGATIVE; Cocaine Screen,Urine PRESUMPTIVE NEGATIVE; Methadone Screen,Urine PRESUMPTIVE NEGATIVE; Opiate Screen,Urine PRESUMPTIVE NEGATIVE
--- NOTE | 2019-09-23 00:49 | Cat Scan Report ---
CTA CHEST WITH IV CONTRAST INDICATION: chest pain and elevated dimer CONTRAST: 100 cc Omnipaque 350 IV COMPARISON: Chest x-ray tonight Three-plane MIP reconstructions were produced. All CT scans at this location are performed using CT d ose reduction for ALARA by means of automated exposure control. FINDINGS: No significant axillary or chest wall abnormalities are seen. No mediastinal or hilar adama s are noted. Mild coronary artery calcifications are seen. No significant pleural effusions are seen. Bibasilar atelectatic changes are noted. No pneumothorax or pneumomediastinum are seen. Mild was nahomi nges are noted. No definite areas of consolidation are seen. No pulmonary nodules or masses are noted . Aorta shows mild atherosclerotic changes but no aneurysmal dilatation or evidence of dissection. Good opacification of the pulmonary arterial system was achieved. I do not see convincing evidence of pulmonary thromboembolism. IMPRESSION: No significant acute abnormalities are seen Signer Name: Stoney Thomas MD Signed: 09/23/2019 12:45 AM Workstation Name: [id number]
[2019-09-23 02:20] VITALS: BP 127/80
== END 2019-09-23 03:07 | disposition home or self-care (01) ==
LOC: ED 16:41
DX: K74.60 Unspecified cirrhosis of liver (principal); M79.644 Pain in right finger(s); F17.200 Nicotine dependence, unspecified, uncomplicated; Z79.899 Other long term (current) drug therapy; Z87.442 Personal history of urinary calculi
CPT/HCPCS: 36415; 71046; 71275; 80048; 80307; 84484; 85025; 85379; 85610; 85730; 93005; 93010; 99284; Q9967

== ENCOUNTER 2020-06-12 15:39 | Emergency (ER) | payer SELFPAY ==
[2020-06-12 16:16] VITALS: BP 127/74
--- NOTE | 2020-06-12 16:56 | Event Note ---
ED Screening Note Date of service: 06/12/20 Time: 16:50 ED Screening Note: Pt complains of left sided chest pain x yesterday hx of liver cirrhosis, states still drinks alcohol also states left shoulder pain x 2 months after an injury This initial assessment/diagnostic orders/clinical plan/treatment(s) is/are subject to change based on patients health status, clinical progression and re- assessment by fellow clinical providers in the ED. Further treatment and workup at subsequent clinical providers discretion. Patient/guardian urged not to elope from the ED as their condition may be serious if not clinically assessed and managed. Initial orders include: CXR labs EKG
[2020-06-12 17:11] LABS: Basophils % (Auto) 0.7 % (0.0-1.8); Eosinophils % (Auto) 0.9 % (0.0-4.3); Hemoglobin 11.5 gm/dl (11.8-15.2); Lymphocytes # (Auto) 1.4 K/mm3 (1.2-5.4); Lymphocytes % (Auto) 28.6 % (13.4-35.0); Mean Corpuscular HGB Conc 33 % (32-34); Mean Corpuscular Volume 106 fl (84-94); Monocytes # (Auto) 0.6 K/mm3 (0.0-0.8); Monocytes % (Auto) 12.4 % (0.0-7.3); Platelet Count 64 K/mm3 (140-440); Red Blood Count 3.31 M/mm3 (3.65-5.03); Red Cell Distribution Width 14.2 % (13.2-15.2)
[2020-06-12 17:44] LABS: Alanine Aminotransferase 94 units/L (7-56); Albumin 2.8 g/dL (3.9-5); BUN/Creatinine Ratio 17; Bilirubin,Direct 1.9 mg/dL (0-0.2); Blood Urea Nitrogen 12 mg/dL (9-20); Hemolysis Index 6
--- NOTE | 2020-06-12 17:45 | XRay Report ---
CHEST 2 VIEWS INDICATION / CLINICAL INFORMATION: Chest Pain. COMPARISON: 09/22/19. FINDINGS: SUPPORT DEVICES: None. HEART / MEDIASTINUM: The heart size and pulmonary vasculature are normal. The aorta is normal in letitia elvis. LUNGS / PLEURA: No significant pulmonary or pleural abnormality. No pneumothorax. ADDITIONAL FINDINGS: No significant additional findings. IMPRESSION: No acute abnormality or significant change. Signer Name: Wei Yeager MD Signed: 06/12/2020 5:40 PM Workstation Name: [id number]
--- NOTE | 2020-06-12 20:52 | Emergency Department Report ---
ED Chest Pain HPI - General Chief Complaint: Chest Pain Stated Complaint: MUSCLE PAIN PUI?: No Time Seen by Provider: 06/12/20 16:49 Source: patient, EMS Mode of arrival: Ambulatory Limitations: No Limitations - History of Present Illness Initial Comments: Mr. Bishop is a 59-year-old male with history of alcoholic liver cirrhosis, alcohol dependence, gallstones who presents with chest pain sudden onset while moving furniture. He had left and right chest pain. He had sweats. Sensation of palpitations heart racing. This occurred at 2 PM. No previous history of heart disease. He does have a history of tobacco use. No family history of heart disease. 1 month ago he injured his left shoulder while moving furniture. 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 Heating pad did improve this pain. He currently is pain-free. Palpitations hasoccurred intermittently for the past several hours. MD Complaint: chest pain -: Gradual, This afternoon Onset: during exertion Pain Location: left chest, right chest Severity: moderate Quality: other (Palpitations) Consistency: now resolved Improves With: rest - Related Data Previous Rx's Medication Instructions Recorded Last Taken Type guaiFENesin/CODEINE [Robitussin AC] 5 ml PO Q6H PRN #120 ml 09/23/19 Unknown Rx Allergies Allergy/AdvReac Type Severity Reaction Status Date / Time No Known Allergies Allergy Unverified 12/04/16 11:12 Heart Score - HEART Score History: Slightly suspicious EKG: Normal Age: 45-65 Risk factors: 1-2 risk factors Troponin: < normal limit HEART Score: 2 ED Review of Systems ROS: Stated complaint: MUSCLE PAIN Other details as noted in HPI Comment: All other systems reviewed and negative Constitutional: denies: fever, malaise Respiratory: denies: cough Cardiovascular: chest pain ED Past Medical Hx - Past Medical History Previous Medical History?: Yes Hx Kidney Stones: Yes Additional medical history: Hx of gallstones, cirrhosis of the liver - Surgical History Past Surgical History?: No - Social History Smoking Status: Current Every Day Smoker Substance Use Type: Alcohol - Medications Home Medications: Home Medications Medication Instructions Recorded Confirmed Last Taken Type guaiFENesin/CODEINE [Robitussin AC] 5 ml PO Q6H PRN #120 ml 09/23/19 Unknown Rx ED Physical Exam - General Limitations: No Limitations General appearance: alert, in no apparent distress - Head Head exam: Present: atraumatic, normocephalic - Eye Eye exam: Present: normal appearance, scleral icterus. Absent: conjunctival injection - ENT ENT exam: Present: mucous membranes moist - Neck Neck exam: Present: normal inspection, full ROM - Respiratory Respiratory exam: Present: normal lung sounds bilaterally. Absent: respiratory distress, wheezes, rales, rhonchi - Cardiovascular Cardiovascular Exam: Present: regular rate, normal rhythm, normal heart sounds. Absent: systolic murmur, diastolic murmur, rubs, gallop - GI/Abdominal GI/Abdominal exam: Present: soft. Absent: distended, tenderness, guarding, rebound - Rectal Rectal exam: Present: deferred - Extremities Exam Extremities exam: Present: normal inspection - Neurological Exam Neurological exam: Present: alert, oriented X3 - Psychiatric Psychiatric exam: Present: normal affect, normal mood - Skin Skin exam: Present: warm, dry, intact, normal color. Absent: rash ED Course Vital Signs 06/12/20 16:15 Temperature 98.1 F Pulse Rate 89 Respiratory 15 Rate Blood Pressure 127/74 O2 Sat by Pulse 97 Oximetry ED Medical Decision Making - Lab Data Result diagrams: 06/12/20 17:01 06/12/20 17:01 - EKG Data EKG shows normal: sinus rhythm, axis, intervals, QRS complexes, ST-T waves Rate: normal - EKG Data Interpretation: normal EKG - Radiology Data Radiology results: report reviewed Chest radiograph 2 views: No acute abnormality or significant change from previous chest radiograph obtained 09/22/2019 - Medical Decision Making Chest pain: Heart score 2. Sensation of palpitations even at rest. Arrhythmia such as atrial fibrillation or ectopic beats such as PVCs are considerations. Low risk for ACS. I have faxed referral request for outpatient follow-up to [facility] cardiovascular center. I encouraged Mr. 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 Patient has left shoulder sprain injury. Has improved with home treatment. Critical care attestation.: If time is entered above; I have spent that time in minutes in the direct care of this critically ill patient, excluding procedure time. ED Disposition Clinical Impression: Chest pain, Palpitation, Sprain of left shoulder Disposition: - TO HOME OR SELFCARE Is pt being admited?: No Does the pt Need Aspirin: No Condition: Stable Instructions: Chest Pain (ED), Palpitations (ED) Referrals: JESSICA GONZALEZ MD [Staff Physician] - 2-3 Days
== END 2020-06-12 21:06 | disposition home or self-care (01) ==
LOC: ED 15:39
DX: S43.492A Other sprain of left shoulder joint, initial encounter (principal); R07.89 Other chest pain; X58.XXXA Exposure to other specified factors, initial encounter; Y93.89 Activity, other specified; Y92.89 Other specified places as the place of occurrence of the external cause; Y99.8 Other external cause status
CPT/HCPCS: 36415; 71046; 80048; 80076; 83690; 84484; 85025; 93005

== ENCOUNTER 2020-06-30 10:57 | Emergency (ER) | payer SELFPAY ==
[2020-06-30] MEDS ORDERED: ASPIRIN 325 MG TAB PO ONE (11:04)
--- NOTE | 2020-06-30 11:33 | XRay Report ---
CHEST 1 VIEW INDICATION: Chest Pain COMPARISON: 06/12/2020 FINDINGS: Support devices: None Heart: Normal and unchanged Lungs/Pleura: Inspiration is less optimal on today's exam, resulting in minimal bibasilar atelectasis , but I see no acute pulmonary disease. IMPRESSION: 1. No acute disease and no significant interval change. Signer Name: James Madrigal MD Signed: 06/30/2020 11:28 AM Workstation Name: [id number]
[2020-06-30 13:07] LABS: Basophils # (Auto) 0.1 K/mm3 (0.0-0.1); Basophils % (Auto) 1.5 % (0.0-1.8); Eosinophils # (Auto) 0.2 K/mm3 (0.0-0.4); Eosinophils % (Auto) 3.6 % (0.0-4.3); Hematocrit 34.4 % (35.5-45.6); Hemoglobin 11.5 gm/dl (11.8-15.2); Lymphocytes # (Auto) 1.7 K/mm3 (1.2-5.4); Lymphocytes % (Auto) 35.9 % (13.4-35.0); Mean Corpuscular HGB Conc 33 % (32-34); Mean Corpuscular Volume 105 fl (84-94); Monocytes # (Auto) 0.6 K/mm3 (0.0-0.8); Monocytes % (Auto) 13.2 % (0.0-7.3); Red Blood Count 3.28 M/mm3 (3.65-5.03); Red Cell Distribution Width 15.1 % (13.2-15.2)
[2020-06-30 13:21] LABS: Platelet Count 80 K/mm3 (140-440)
[2020-06-30 13:23] LABS: Blood Urea Nitrogen 9 mg/dL (9-20); Calcium 8.1 mg/dL (8.4-10.2); Hemolysis Index 8
[2020-06-30 13:43] LABS: BUN/Creatinine Ratio 18
[2020-06-30 14:25] VITALS: BP 146/78
[2020-06-30] MEDS ORDERED: HYDROcodone/ACETAMINOPHEN 5-325 MG TAB PO ONE (15:04)
--- NOTE | 2020-06-30 15:29 | Emergency Department Report ---
ED Chest Pain HPI - General Chief Complaint: Chest Pain Stated Complaint: anterior chest wall pain Time Seen by Provider: 06/30/20 14:25 Source: patient, old records reviewed Mode of arrival: Ambulatory Limitations: No Limitations - History of Present Illness Initial Comments: 59-year-old male with a past medical history of alcohol abuse, cirrhosis of l iver, gallstones presents to the hospital complaining of continued intermittent right upper chest pain. Pain is currently 6/10 intensity, worse with movement and palpation. Patient denies nausea, vomiting, diaphoresis, shortness of breath. Pain radiates to the right neck. Patient was here recently with similar pain. 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 He has not taken any medications prior to arrival and is not currently taking any medications for pain Severity scale (0 -10): 6 - Related Data Previous Rx's Medication Instructions Recorded Last Taken Type guaiFENesin/CODEINE [Robitussin AC] 5 ml PO Q6H PRN #120 ml 09/23/19 Unknown Rx Allergies Allergy/AdvReac Type Severity Reaction Status Date / Time No Known Allergies Allergy Verified 06/30/20 10:59 Heart Score - HEART Score History: Slightly suspicious EKG: Normal Age: 45-65 Risk factors: 1-2 risk factors Troponin: < normal limit HEART Score: 2 ED Review of Systems ROS: Stated complaint: anterior chest wall pain Other details as noted in HPI Comment: All other systems reviewed and negative ED Past Medical Hx - Past Medical History Hx Kidney Stones: Yes Additional medical history: Hx of gallstones, cirrhosis of the liver - Social History Smoking Status: Current Every Day Smoker Substance Use Type: None - Medications Home Medications: Home Medications Medication Instructions Recorded Confirmed Last Taken Type guaiFENesin/CODEINE [Robitussin AC] 5 ml PO Q6H PRN #120 ml 09/23/19 Unknown Rx ED Physical Exam - General Limitations: No Limitations - Other Other exam information: General: No acute distress Head: Atraumatic Eyes: normal appearance ENT: Moist mucous membranes Neck: Normal appearance, no midline tenderness Chest: Clear to auscultation bilaterally. Reproducible right upper chest wall tenderness to palpation CV: Regular rate and rhythm Abdomen: Soft, normal bowel sounds, nontender, nondistended, no rebound or guarding Back: Normal inspection Extremity: Normal inspection, full range of motion, no calf tenderness or leg edema Neuro: Alert O x 3, no facial asymmetry, speech clear, no gross motor sensory deficit Psych: Appropriate behavior Skin: No rash ED Course Vital Signs 06/30/20 06/30/20 11:02 14:23 Temperature 97.9 F Pulse Rate 100 H 65 Respiratory 17 18 Rate Blood Pressure 133/75 Blood Pressure 146/78 [Left] O2 Sat by Pulse 96 96 Oximetry ED Medical Decision Making - Lab Data Result diagrams: 06/30/20 12:51 06/30/20 12:51 Lab Results 06/30/20 06/30/20 06/30/20 Range/Units 12:51 12:51 14:50 WBC 4.6 (4.5-11.0) K/mm3 RBC 3.28 L (3.65-5.03) M/mm3 Hgb 11.5 L (11.8-15.2) gm/dl Hct 34.4 L (35.5-45.6) % MCV 105 H (84-94) fl MCH 35 H (28-32) pg MCHC 33 (32-34) % RDW 15.1 (13.2-15.2) % Plt Count 80 L (140-440) K/mm3 Lymph % (Auto) 35.9 H (13.4-35.0) % Dukes % (Auto) 13.2 H (0.0-7.3) % Eos % (Auto) 3.6 (0.0-4.3) % Baso % (Auto) 1.5 (0.0-1.8) % Lymph # 1.7 (1.2-5.4) K/mm3 Dukes # 0.6 (0.0-0.8) K/mm3 Eos # 0.2 (0.0-0.4) K/mm3 Baso # 0.1 (0.0-0.1) K/mm3 Seg Neutrophils % 45.8 (40.0-70.0) % Seg Neutrophils # 2.1 (1.8-7.7) K/mm3 Sodium 137 (137-145) mmol/L Potassium 3.9 (3.6-5.0) mmol/L Chloride 104.2 (98-107) mmol/L Carbon Dioxide 21 L (22-30) mmol/L Anion Gap 16 mmol/L BUN 9 (9-20) mg/dL Creatinine 0.5 L (0.8-1.3) mg/dL Estimated GFR > 60 ml/min BUN/Creatinine Ratio 18 % Glucose 110 H (75-100) mg/dL Calcium 8.1 L (8.4-10.2) mg/dL Troponin T < 0.010 < 0.010 (0.00-0.029) ng/mL - EKG Data -: EKG Interpreted by Me EKG shows normal: sinus rhythm, ST-T waves (no stemi) Rate: normal (85) - Radiology Data Radiology results: report reviewed CHEST 1 VIEW INDICATION: Chest Pain COMPARISON: 06/12/2020 FINDINGS: Support devices: None Heart: Normal and unchanged Lungs/Pleura: Inspiration is less optimal on today's exam, resulting in minimal bibasilar atelectasis, but I see no acute pulmonary disease. IMPRESSION: 1. No acute disease and no significant interval change. 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 EKG unremarkable. Troponin negative x2. Patient has a history of al cohol induced liver cirrhosis with chronic thrombocytopenia. He was provided 1 dose of Rohwer in the ED and will be discharged on topical NSAIDs Critical Care Time: No Critical care attestation.: If time is entered above; I have spent that time in minutes in the direct care of this critically ill patient, excluding procedure time. ED Disposition Clinical Impression: Chest wall muscle strain Disposition: DC-01 TO HOME OR SELFCARE Is pt being admited?: No Does the pt Need Aspirin: No Condition: Stable Instructions: Thoracic Pain (ED) Additional Instructions: You may purchase [id number] Topical NSAID such as Voltaren (diclofenac sodium 1% gel) to use for pain. You may also take oral Tylenol/acetaminophen for pain relief. Follow-up with your doctor or doctor/clinic provided. Return if symptoms worsen as indicated by your discharge instructions. Referrals: PRIMARY CAREMD [Primary Care Provider] - 3-5 Days HARRY STONER MD [Staff Physician] - 3-5 Days [facility] [Provider Group] - 3-5 Days Time of Disposition: 16:16
== END 2020-06-30 16:47 | disposition home or self-care (01) ==
LOC: ED 10:57
DX: S29.011A Strain of muscle and tendon of front wall of thorax, initial encounter (principal); F17.200 Nicotine dependence, unspecified, uncomplicated; F10.10 Alcohol abuse, uncomplicated; Z79.899 Other long term (current) drug therapy; Z87.442 Personal history of urinary calculi; X58.XXXA Exposure to other specified factors, initial encounter; Y93.89 Activity, other specified; Y92.89 Other specified places as the place of occurrence of the external cause; Y99.8 Other external cause status
CPT/HCPCS: 36415; 71045; 80048; 84484; 85025; 93005

== ENCOUNTER 2020-12-08 11:46 | Emergency (ER) | payer SELFPAY ==
[2020-12-08 12:13] VITALS: BP 142/80
--- NOTE | 2020-12-08 12:30 | Event Note ---
ED Screening Note ED Screening Note: pt presents to the ED with c/o rectal bleeding for one week He states he notices the blood on the toilet tissue whenever he wipes He states he has been straining to have a bowel movement but has also been having diarrhea He denies any rectal pain, abdominal pain, fever, nausea, vomiting, pus in the stool, melena He has not had a screening colonoscopy Past medical history of gallstones No allergies to medications No abdominal surgical history He is a current everyday drinker he drinks 1 pint a day He endorses tobacco use daily This initial assessment/diagnostic orders/clinical plan/treatment(s) is/are subject to change based on patients health status, clinical progression and re- assessment by fellow clinical providers in the ED. Further treatment and workup at subsequent clinical providers discretion. Patient/guardian urged not to elope from the ED as their condition may be serious if not clinically assessed and managed. Initial orders include: labs
[2020-12-08 13:50] LABS: Basophils # (Auto) 0.1 K/mm3 (0.0-0.1); Basophils % (Auto) 1.8 % (0.0-1.8); Eosinophils # (Auto) 0.1 K/mm3 (0.0-0.4); Eosinophils % (Auto) 1.2 % (0.0-4.3); Hematocrit 34.9 % (35.5-45.6); Hemoglobin 11.7 gm/dl (11.8-15.2); Lymphocytes # (Auto) 1.5 K/mm3 (1.2-5.4); Lymphocytes % (Auto) 31.6 % (13.4-35.0); Mean Corpuscular HGB Conc 34 % (32-34); Mean Corpuscular Volume 106 fl (84-94); Monocytes # (Auto) 0.7 K/mm3 (0.0-0.8); Monocytes % (Auto) 14.3 % (0.0-7.3); Red Blood Count 3.29 M/mm3 (3.65-5.03); Red Cell Distribution Width 15.2 % (13.2-15.2)
[2020-12-08 13:53] LABS: Platelet Count 79 K/mm3 (140-440)
--- NOTE | 2020-12-08 14:04 | Emergency Department Report ---
ED General Adult HPI - General Chief complaint: GI Bleed Stated complaint: RECTAL BLEEDING Time Seen by Provider: 12/08/20 12:28 Source: patient, EMS Mode of arrival: Stretcher Limitations: No Limitations - History of Present Illness Initial comments: Patient is a 52-year-old male who presents emergency department for evaluation of small streaks of blood noted to the tissue paper when wiping after defecating for the past 1 week. Patient denies bleeding into the toilet bowl, denies bleeding with stool, denies change in stool color, denies abdominal pain, denies vomiting. Patient denies anticoagulation. - Related Data Previous Rx's Medication Instructions Recorded Last Taken Type guaiFENesin/CODEINE [Robitussin AC] 5 ml PO Q6H PRN #120 ml 09/23/19 Unknown Rx Docusate Sodium [Colace] 100 mg PO BID #10 capsule 12/08/20 Unknown Rx Allergies Allergy/AdvReac Type Severity Reaction Status Date / Time No Known Allergies Allergy Verified 06/30/20 10:59 ED Review of Systems ROS: Stated complaint: RECTAL BLEEDING Other details as noted in HPI Comment: All other systems reviewed and negative ED Past Medical Hx - Past Medical History Previous Medical History?: Yes Hx Kidney Stones: Yes Additional medical history: Hx of gallstones, cirrhosis of the liver - Surgical History Past Surgical History?: No - Social History Smoking Status: Current Every Day Smoker - Medications Home Medications: Home Medications Medication Instructions Recorded Confirmed Last Taken Type guaiFENesin/CODEINE [Robitussin AC] 5 ml PO Q6H PRN #120 ml 09/23/19 Unknown Rx Docusate Sodium [Colace] 100 mg PO BID #10 capsule 12/08/20 Unknown Rx ED Physical Exam - General Limitations: No Limitations General appearance: alert, in no apparent distress - Head Head exam: Present: atraumatic, normocephalic - Eye Eye exam: Present: normal appearance - ENT ENT exam: Present: mucous membranes moist - Neck Neck exam: Present: normal inspection - Respiratory Respiratory exam: Present: normal lung sounds bilaterally. Absent: respiratory distress - Cardiovascular Cardiovascular Exam: Present: regular rate, normal rhythm. Absent: systolic murmur, diastolic murmur, rubs, gallop - GI/Abdominal GI/Abdominal exam: Present: soft, normal bowel sounds - Rectal Rectal exam: Present: deferred - Extremities Exam Extremities exam: Present: normal inspection - Back Exam Back exam: Present: normal inspection - Neurological Exam Neurological exam: Present: alert, oriented X3 - Psychiatric Psychiatric exam: Present: normal affect, normal mood - Skin Skin exam: Present: warm, dry, intact, normal color. Absent: rash ED Course Vital Signs 12/08/20 12:10 Temperature 97.5 F L Pulse Rate 63 Respiratory 18 Rate Blood Pressure 142/80 O2 Sat by Pulse 97 Oximetry ED Medical Decision Making - Lab Data Result diagrams: 12/08/20 13:18 12/08/20 13:18 Labs 12/08/20 12/08/20 13:18 13:18 WBC 4.8 RBC 3.29 L Hgb 11.7 L Hct 34.9 L MCV 106 H MCH 36 H MCHC 34 RDW 15.2 Plt Count 79 L Lymph % (Auto) 31.6 Archuleta % (Auto) 14.3 H Eos % (Auto) 1.2 Baso % (Auto) 1.8 Lymph # (Auto) 1.5 Archuleta # (Auto) 0.7 Eos # (Auto) 0.1 Baso # (Auto) 0.1 Seg Neutrophils % 51.1 Seg Neutrophils # 2.5 Sodium 139 Potassium 3.2 L Chloride 104.1 Carbon Dioxide 25 Anion Gap 13 BUN 5 L Creatinine 0.5 L Estimated GFR > 60 BUN/Creatinine Ratio 10 Glucose 128 H Calcium 7.8 L Total Bilirubin 2.50 H AST 170 H ALT 66 H Alkaline Phosphatase 290 H Total Protein 7.7 Albumin 2.6 L Albumin/Globulin Ratio 0.5 Lipase 57 Vital Signs 12/08/20 12:10 Temperature 97.5 F L Pulse Rate 63 Respiratory 18 Rate Blood Pressure 142/80 O2 Sat by Pulse 97 Oximetry - Medical Decision Making Patient's hemoglobin consistent with or improved from baseline Critical care attestation.: If time is entered above; I have spent that time in minutes in the direct care of this critically ill patient, excluding procedure time. ED Disposition Clinical Impression: Rectal bleeding Disposition: -01 TO HOME OR SELFCARE Is pt being admited?: No Condition: Stable Instructions: Rectal Bleeding Additional Instructions: Follow-up with GI in 1 to 2 days for reevaluation. Please note a colonoscopy may be required for definitive diagnosis. Return to the emergency department for worsening bleeding or worsening symptoms. Prescriptions: Docusate Sodium [Colace] 100 mg PO BID #10 capsule Referrals: PRIMARY CARE, [Primary Care Provider] - 3-5 Days MAGALI HARRISON MD [Staff Physician] - 3-5 Days Forms: Accompanied Note
[2020-12-08 14:11] LABS: Alanine Aminotransferase 66 units/L (7-56); Albumin 2.6 g/dL (3.9-5); Blood Urea Nitrogen 5 mg/dL (9-20); Calcium 7.8 mg/dL (8.4-10.2); Hemolysis Index 10
[2020-12-08 14:14] LABS: BUN/Creatinine Ratio 10
== END 2020-12-08 14:42 | disposition home or self-care (01) ==
LOC: ED 11:46
DX: K62.5 Hemorrhage of anus and rectum (principal); N20.0 Calculus of kidney; F17.200 Nicotine dependence, unspecified, uncomplicated; Z79.899 Other long term (current) drug therapy
CPT/HCPCS: 36415; 80053; 83690; 85025; 99283

== ENCOUNTER 2021-01-21 10:11 | Emergency (ER) | payer SELFPAY ==
--- NOTE | 2021-01-21 10:19 | Event Note ---
ED Screening Note Date of service: 01/21/21 Time: 10:15 ED Screening Note: This 60-year-old man with a history of cirrhosis of the liver and alcohol use presents to the ED complaining of blood in his stool x1 week. Patient states that symptoms initially started a couple of months ago, symptoms relieved and then began again This initial assessment/diagnostic orders/clinical plan/treatment(s) is/are subject to change based on patients health status, clinical progression and re- assessment by fellow clinical providers in the ED. Further treatment and workup at subsequent clinical providers discretion. Patient/guardian urged not to elope from the ED as their condition may be serious if not clinically assessed and managed. Initial orders include: labs
[2021-01-21] MEDS ORDERED: fentaNYL 100 MCG/2 ML INJ IV ONE ×2 (10:40→12:15)
[2021-01-21] MEDS ORDERED: ONDANSETRON 4 MG/2 ML INJ IV ONE (10:40)
[2021-01-21] MEDS ORDERED: LACTATED RINGERS 500 ML IV ONE (10:40)
--- NOTE | 2021-01-21 10:43 | Emergency Department Report ---
ED General Adult HPI - General Chief complaint: GI Bleed Stated complaint: i have blood in my poop and my pee is funny PUI?: No Time Seen by Provider: 01/21/21 10:26 Source: patient, RN notes reviewed, old records reviewed Mode of arrival: Ambulatory Limitations: No Limitations - History of Present Illness Initial comments: The patient was evaluated in the emergency department for symptoms described in the history of present illness. He/she was evaluated in the context of the global COVID-19 pandemic, which necessitated consideration that the patient might be at risk for infection with the virus that causes COVID-19. Ins titutional protocols and algorithms that pertain to the evaluation of patients at risk for COVID-19 are in a state of rapid change based on information released by regulatory bodies including the CDC and federal and state organizations. These policies and algorithms were followed during the patient's care in the emergency department. Please note that these policies, procedures and recommendations changed on a rapid basis. During the history and physical examination, I am chaperoned by nurse Glenis Mendoza. This is a 60-year-old male. He has a history of cirrhosis, and was seen in this department last month for history of possible lower GI bleed. His physical examination and laboratory studies were unremarkable at that time. 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 Today, he presents to the ER with a complaint of intermittent bright red blood per rectum, intermixed with brown stool for 1 week. He denies headache, neck pain, chest pain, shortness of breath, hematemesis. He does not take any anticoagulants. He has intermittent left lower quadrant pain. He also reports that his sexual partner was recently treated for trichomoniasis. He does not have testicular pain, dysuria, urinary frequency, but he states that "it feels funny sometimes down there." He reports only one sexual partner in the past 6 months. Intermittent condom use. -: days(s) Location: abdomen (Left lower quadrant) Radiation: non-radiation Quality: aching Consistency: intermittent Improves with: rest Worsens with: other (Palpation) - Related Data Previous Rx's Medication Instructions Recorded Last Taken Type Docusate Sodium [Colace] 100 mg PO BID #10 capsule 12/08/20 Unknown Rx Famotidine [Pepcid] 20 mg PO QDAY #30 tablet 01/21/21 Unknown Rx Luci Root [Luci] 250 mg PO QID PRN #30 capsule 01/21/21 Unknown Rx Allergies Allergy/AdvReac Type Severity Reaction Status Date / Time No Known Allergies Allergy Verified 01/21/21 10:13 ED Review of Systems ROS: Stated complaint: BLEEDING FROM PENIS/AND ANUS Other details as noted in HPI Constitutional: other (Patient denies fever, loss of taste and smell). denies: fever, malaise, weakness Eyes: denies: eye discharge Respiratory: denies: cough, shortness of breath Cardiovascular: denies: chest pain Gastrointestinal: hematochezia. denies: nausea, vomiting, constipation, hematemesis, melena Genitourinary: as per HPI. denies: urgency, dysuria, frequency, hematuria, discharge, testicular pain, testicular mass Musculoskeletal: denies: back pain Skin: denies: lesions Neurological: denies: weakness Hematological/Lymphatic: denies: easy bleeding ED Past Medical Hx - Past Medical History Hx Kidney Stones: Yes Additional medical history: Hx of gallstones, cirrhosis of the liver - Social History Smoking Status: Current Every Day Smoker Substance Use Type: Alcohol - Medications Home Medications: Home Medications Medication Instructions Recorded Confirmed Last Taken Type Docusate Sodium [Colace] 100 mg PO BID #10 capsule 12/08/20 Unknown Rx Famotidine [Pepcid] 20 mg PO QDAY #30 tablet 01/21/21 Unknown Rx Luci Root [Luci] 250 mg PO QID PRN #30 capsule 01/21/21 Unknown Rx ED Physical Exam - General Limitations: No Limitations General appearance: alert, in no apparent distress - Head Head exam: Present: atraumatic, normocephalic - Eye Eye exam: Present: normal appearance, EOMI. Absent: nystagmus - ENT ENT exam: Present: normal exam, normal orophraynx, mucous membranes moist, normal external ear exam - Neck Neck exam: Present: normal inspection, full ROM. Absent: tenderness, meningismus - Respiratory Respiratory exam: Present: normal lung sounds bilaterally. Absent: respiratory distress, wheezes, rales, rhonchi, stridor, decreased breath sounds - Cardiovascular Cardiovascular Exam: Present: regular rate, normal rhythm, normal heart sounds. Absent: bradycardia, tachycardia, irregular rhythm, systolic murmur, diastolic murmur, rubs, gallop - GI/Abdominal GI/Abdominal exam: Present: soft, tenderness, normal bowel sounds. Absent: distended, guarding, rebound, rigid, pulsatile mass - Rectal Rectal exam: Present: normal inspection, normal rectal tone, heme (+) stool, other (Chaperoned by nurse Glenis Mendoza). Absent: black stool, bloody stool, fecal impaction, hemorrhoids, mass, tenderness - exam: Present: normal inspection. Absent: circumcision (Patient is uncircumcised. There is no phimosis or paraphimosis. There is no obvious discharge) External exam: Present: normal external exam, other (There is normal testicular lie. There is normal cremasteric reflex. There is no testicular tenderness. There is no testicular swelling) - Extremities Exam Extremities exam: Present: normal inspection, full ROM, other (2+ pulses noted in the bilateral upper and lower extremities. There is no palpable cord. negative Homans sign. Muscular compartments are soft. The pelvis is stable.). Absent: pedal edema, joint swelling, calf tenderness - Back Exam Back exam: Present: normal inspection, full ROM. Absent: tenderness, CVA tenderness (R), CVA tenderness (L), paraspinal tenderness, vertebral tenderness - Neurological Exam Neurological exam: Present: alert, oriented X3, normal gait, other (No facial droop. Tongue midline. Extraocular movements intact bilaterally. Facial sensation intact to light touch in V1, V2, V3 distribution bilaterally. 5 and a 5 strength in 4 extremities. Sensation intact to light touch in 4 extremities.). Absent: motor sensory deficit - Psychiatric Psychiatric exam: Present: normal affect, normal mood - Skin Skin exam: Present: warm, dry, intact, normal color. Absent: rash ED Course Vital Signs 01/21/21 01/21/21 01/21/21 10:13 10:46 11:00 Temperature 98.3 F Pulse Rate 106 H 93 H 88 Respiratory 20 25 H 15 Rate Blood Pressure 152/85 123/80 123/80 Blood Pressure [Right] O2 Sat by Pulse 97 96 96 Oximetry 01/21/21 01/21/21 01/21/21 11:15 11:30 11:53 Temperature Pulse Rate 80 81 Respiratory 15 18 15 Rate Blood Pressure 142/85 Blood Pressure 142/85 [Right] O2 Sat by Pulse 96 97 Oximetry 01/21/21 01/21/2121 12:04 12:30 12:46 Temperature Pulse Rate 90 74 68 Respiratory 24 28 H 22 Rate Blood Pressure 142/85 150/85 140/80 Blood Pressure [Right] O2 Sat by Pulse 95 89 Oximetry - Reevaluation(s) Reevaluation #1: 01/21/21 12:05 Differential diagnosis, including but not limited to: Diverticulosis, angiodysplasia, lower GI bleed, malignancy, exposure to trichomoniasis, chronic cirrhosis Assessment and plan: 60-year-old gentleman, with resolved tachycardia, who is afebrile, with reassuring vital signs, clinically sober, not acutely encephalopathic, with a recurrent complaint of bloody stool over the past month, stable hemoglobin, hematocrit, stable platelet count, thrombocytopenia likely secondary to his cirrhosis, LFTs consistent with history of liver disease, also with left lower quadrant pain, and exposure to trichomoniasis. Obtain CT scan of the abdomen pelvis, treat symptoms, urinalysis, check cultures, reassess after initial data points. Have discussed this plan of care with the patient, who verbalized understanding, and is amenable to this plan of care. Reevaluation #2: 01/21/21 12:38 Urinalysis not suggestive of acute bacterial urinary tract infection. Patient can follow-up with an outpatient primary care doctor or health department for STD screening/STI treatment. CT scan of the abdomen pelvis is reviewed and appreciated. Do not clinically suspect pneumonia at this time, suspect that chest findings are likely at electatic changes, possible edema, likely related to underlying known cirrhosis. No acute pathology that would require emergent surgical antibiotic intervention as noted on CT scan of the abdomen pelvis. We do not clinically suspect such as spontaneous bacterial peritonitis at this time. Abdomen soft now on repeat examination, patient resting comfortably, and in no acute distress. we will discuss with gastroenterology on-call, anticipate outpatient follow-up. Reevaluation #3: 01/21/21 13:17 Patient resting comfortably in no acute distress. Have discussed patient's history, physical, pertinent laboratory studies and imaging findings with Dr. Childers, gastroenterology on-call. We are both of the mindset in agreements that patient should follow-up as an outpatient to complete work-up. Patient is not clinically encephalopathic at this time, therefore, would not initiate lactulose, or Xifaxan therapy ED Medical Decision Making - Lab Data Result diagrams: 01/21/21 10:44 01/21/21 10:44 Vital Signs 01/21/21 01/21/21 01/21/21 10:13 10:46 11:00 Temperature 98.3 F Pulse Rate 106 H 93 H 88 Respiratory 20 25 H 15 Rate Blood Pressure 152/85 123/80 123/80 Blood Pressure [Right] O2 Sat by Pulse 97 96 96 Oximetry 01/21/21 01/21/21 01/21/21 11:15 11:30 11:53 Temperature Pulse Rate 80 81 Respiratory 15 18 15 Rate Blood Pressure 142/85 Blood Pressure 142/85 [Right] O2 Sat by Pulse 96 97 Oximetry Lab Results 01/21/21 01/21/21 01/21/21 Range/Units 10:44 10:44 10:44 WBC 5.8 (4.5-11.0) K/mm3 RBC 3.39 L (3.65-5.03) M/mm3 Hgb 12.2 (11.8-15.2) gm/dl Hct 36.2 (35.5-45.6) % MCV 107 H (84-94) fl MCH 36 H (28-32) pg MCHC 34 (32-34) % RDW 15.3 H (13.2-15.2) % Plt Count 77 L (140-440) K/mm3 Lymph % (Auto) 26.7 (13.4-35.0) % Walton % (Auto) 12.1 H (0.0-7.3) % Eos % (Auto) 2.2 (0.0-4.3) % Baso % (Auto) 2.2 H (0.0-1.8) % Lymph # (Auto) 1.5 (1.2-5.4) K/mm3 Walton # (Auto) 0.7 (0.0-0.8) K/mm3 Eos # (Auto) 0.1 (0.0-0.4) K/mm3 Baso # (Auto) 0.1 (0.0-0.1) K/mm3 Seg Neutrophils % 56.8 (40.0-70.0) % Seg Neutrophils # 3.3 (1.8-7.7) K/mm3 PT 18.7 H (12.2-14.9) Sec. INR 1.56 H (0.87-1.13) APTT 34.9 (24.2-36.6) Sec. Sodium 135 L (137-145) mmol/L Potassium 3.5 L (3.6-5.0) mmol/L Chloride 102.6 (98-107) mmol/L Carbon Dioxide 25 (22-30) mmol/L Anion Gap 11 mmol/L BUN 8 L (9-20) mg/dL Creatinine 0.6 L (0.8-1.3) mg/dL Estimated GFR > 60 ml/min BUN/Creatinine Ratio 13 % Glucose 108 H (75-100) mg/dL Calcium 7.8 L (8.4-10.2) mg/dL Total Bilirubin (0.1-1.2) mg/dL Direct Bilirubin (0-0.2) mg/dL Indirect Bilirubin mg/dL AST (5-40) units/L ALT (7-56) units/L Alkaline Phosphatase (35-129) units/L Total Protein (6.3-8.2) g/dL Albumin (3.9-5) g/dL Albumin/Globulin Ratio % Salicylates (2.8-20.0) mg/dL Acetaminophen (10.0-30.0) ug/mL 01/21/21 01/21/21 01/21/21 Range/Units 10:44 10:44 10:44 WBC (4.5-11.0) K/mm3 RBC (3.65-5.03) M/mm3 Hgb (11.8-15.2) gm/dl Hct (35.5-45.6) % MCV (84-94) fl MCH (28-32) pg MCHC (32-34) % RDW (13.2-15.2) % Plt Count (140-440) K/mm3 Lymph % (Auto) (13.4-35.0) % Walton % (Auto) (0.0-7.3) % Eos % (Auto) (0.0-4.3) % Baso % (Auto) (0.0-1.8) % Lymph # (Auto) (1.2-5.4) K/mm3 Walton # (Auto) (0.0-0.8) K/mm3 Eos # (Auto) (0.0-0.4) K/mm3 Baso # (Auto) (0.0-0.1) K/mm3 Seg Neutrophils % (40.0-70.0) % Seg Neutrophils # (1.8-7.7) K/mm3 PT (12.2-14.9) Sec. INR (0.87-1.13) APTT (24.2-36.6) Sec. Sodium (137-145) mmol/L Potassium (3.6-5.0) mmol/L Chloride (98-107) mmol/L Carbon Dioxide (22-30) mmol/L Anion Gap mmol/L BUN (9-20) mg/dL Creatinine (0.8-1.3) mg/dL Estimated GFR ml/min BUN/Creatinine Ratio % Glucose (75-100) mg/dL Calcium (8.4-10.2) mg/dL Total Bilirubin 4.10 H (0.1-1.2) mg/dL Direct Bilirubin 2.4 H (0-0.2) mg/dL Indirect Bilirubin 1.7 mg/dL AST 107 H (5-40) units/L ALT 44 (7-56) units/L Alkaline Phosphatase 300 H (35-129) units/L Total Protein 7.9 (6.3-8.2) g/dL Albumin 2.4 L (3.9-5) g/dL Albumin/Globulin Ratio 0.4 % Salicylates < 0.3 L (2.8-20.0) mg/dL Acetaminophen 5.0 L (10.0-30.0) ug/mL - Radiology Data Radiology results: report reviewed, image reviewed CT ABDOMEN AND PELVIS WITH CONTRAST INDICATION: llq pain, lgib. TECHNIQUE: Axial CT images were obtained through the abdomen and pelvis after 100 cc IV contrast. All CT scans at this location are performed using CT dose reduction for ALARA by means of automated exposure control. COMPARISON: CT abdomen and pelvis 01/08/2019 FINDINGS: LOWER CHEST: Mild bilateral lower lobe parenchymal disease could repre sent dependent edema or early pneumonia. Cardiomegaly again noted LIVER: Moderate hepatomegaly and severe steatosis again noted. GALLBLADDER: No significant abnormality. BILE DUCTS: No significant abnormality. PANCREAS: No significant abnormality. SPLEEN: No significant abnormality. ADRENALS: No significant abnormality. RIGHT KIDNEY and URETER: No significant abnormality. LEFT KIDNEY and URETER: No significant abnormality. STOMACH and SMALL BOWEL: No significant abnormality. COLON: Moderate sigmoid and mild colonic diverticulosis without diverticulitis APPENDIX: No significant abnormality. PERITONEUM: Moderate ascites No free air. No fluid collection. LYMPH NODES: No significant adenopathy. AORTA and ARTERIES: Moderate vascular calcifications throughout nonaneurysmal aorta. IVC and VEINS: No significant abnormality. URINARY BLADDER: No significant abnormality. REPRODUCTIVE ORGANS: No significant abnormality. ADDITIONAL FINDINGS: None. SKELETAL SYSTEM: No significant abnormality. Critical care attestation.: If time is entered above; I have spent that time in minutes in the direct care of this critically ill patient, excluding procedure time. ED Disposition Clinical Impression: History of cirrhosis, History of GI bleed, Left lower quadrant abdominal pain, Exposure to trichomonas, Diverticulosis Disposition: TO HOME OR SELFCARE Is pt being admited?: No Does the pt Need Aspirin: No Condition: Good Instructions: Cirrhosis, Trichomoniasis, Lower Gastrointestinal Bleeding Additional Instructions: Take the pain medication, nausea medication as needed and directed. Do not take Motrin, ibuprofen, Naprosyn, Aleve, aspirin. Avoid consumption of alcohol, heavy and spicy foods. Do not take Metformin medication for the next 2 days, if patient takes this medication. Recommend follow-up with an outpatient primary care doctor, or the health department, for screening/testing for sexually transmitted infections, such as gonorrhea, chlamydia, trichomoniasis Cultures were sent today, and results to be available in the next 3 to 5 days. Please have a primary care doctor contact the medical records department to obtain his culture results. When participating in sexual activity, recommend the patient always wear a condom, practice safe sex practices. Recommend follow-up with the primary care doctor within the next [address] Hurtado Is a local primary care doctor. We recommend follow-up with a tape rules printing machine operator within the next [address] Childers is a local tape rules printing machine operator. It is very important to follow-up with [facility] outpatient gastroenterology for history of GI bleeding, for evaluation for colonoscopy. Not following up as recommended may result in undiagnosed cancer, tumor, malignancy. Please return to the emergency room right away with new pain, worsening pain, migration of pain, projectile vomiting, change in mental status, confusion, inability to tolerate liquid feeds, new, worsened or different symptoms not present on the initial emergency room evaluation. Prescriptions: Luci Root [Luci] 250 mg PO QID PRN #30 capsule PRN Reason: Nausea Famotidine [Pepcid] 20 mg PO QDAY #30 tablet Referrals: STACIA CHILDERS MD [Staff Physician] - 3-5 Days [facility] [Provider Group] - 3-5 Days HARRY HURTADO MD [Staff Physician] - 3-5 Days [facility] [Outside] - 3-5 Days Forms: Accompanied Note
[2021-01-21 11:08] LABS: Basophils # (Auto) 0.1 K/mm3 (0.0-0.1); Basophils % (Auto) 2.2 % (0.0-1.8); Eosinophils # (Auto) 0.1 K/mm3 (0.0-0.4); Eosinophils % (Auto) 2.2 % (0.0-4.3); Hematocrit 36.2 % (35.5-45.6); Hemoglobin 12.2 gm/dl (11.8-15.2); Lymphocytes # (Auto) 1.5 K/mm3 (1.2-5.4); Lymphocytes % (Auto) 26.7 % (13.4-35.0); Mean Corpuscular HGB Conc 34 % (32-34); Mean Corpuscular Volume 107 fl (84-94); Monocytes # (Auto) 0.7 K/mm3 (0.0-0.8); Monocytes % (Auto) 12.1 % (0.0-7.3); Red Blood Count 3.39 M/mm3 (3.65-5.03); Red Cell Distribution Width 15.3 % (13.2-15.2)
[2021-01-21 11:31] LABS: Blood Urea Nitrogen 8 mg/dL (9-20); Calcium 7.8 mg/dL (8.4-10.2); Hemolysis Index 0
[2021-01-21 11:33] LABS: INR 1.56 (0.87-1.13)
[2021-01-21 11:34] LABS: Partial Thromboplastin Time 34.9 Sec. (24.2-36.6)
[2021-01-21 11:35] LABS: Albumin 2.4 g/dL (3.9-5); Bilirubin,Direct 2.4 mg/dL (0-0.2)
[2021-01-21 11:37] LABS: BUN/Creatinine Ratio 13
[2021-01-21 11:45] LABS: Platelet Count 77 K/mm3 (140-440)
[2021-01-21 12:10] LABS: Bilirubin,Urine NEG (Negative); Blood,Urine NEG (Negative); Color,Urine Amber (Yellow); Protein,Urine <15 mg/dL mg/dL (Negative)
--- NOTE | 2021-01-21 12:26 | Cat Scan Report ---
CT ABDOMEN AND PELVIS WITH CONTRAST INDICATION: llq pain, lgib. TECHNIQUE: Axial CT images were obtained through the abdomen and pelvis after 100 cc IV contrast. All CT scans at this location are performed using CT dose reduction for ALARA by means of automated exposure contr ol. COMPARISON: CT abdomen and pelvis 01/08/2019 FINDINGS: LOWER CHEST: Mild bilateral lower lobe parenchymal disease could represent dependent edema or early p neumonia. Cardiomegaly again noted LIVER: Moderate hepatomegaly and severe steatosis again noted. GALLBLADDER: No significant abnormality. BILE DUCTS: No significant abnormality. PANCREAS: No significant abnormality. SPLEEN: No significant abnormality. ADRENALS: No significant abnormality. RIGHT KIDNEY and URETER: No significant abnormality. LEFT KIDNEY and URETER: No significant abnormality. STOMACH and SMALL BOWEL: No significant abnormality. COLON: Moderate sigmoid and mild colonic diverticulosis without diverticulitis APPENDIX: No significant abnormality. PERITONEUM: Moderate ascites No free air. No fluid collection. LYMPH NODES: No significant adenopathy. AORTA and ARTERIES: Moderate vascular calcifications throughout nonaneurysmal aorta. IVC and VEINS: No significant abnormality. URINARY BLADDER: No significant abnormality. REPRODUCTIVE ORGANS: No significant abnormality. ADDITIONAL FINDINGS: None. SKELETAL SYSTEM: No significant abnormality. IMPRESSION: 1. Mild bibasilar parenchymal disease could represent dependent edema versus less likely pneumonia. 2. Hepatomegaly and marked steatosis with new onset moderate ascites 3. Sigmoid diverticulosis without diverticulitis Signer Name: Jose A Rodrigues MD Signed: 01/21/2021 12:22 PM Workstation Name: [id number]
[2021-01-21 13:36] VITALS: BP 127/72
== END 2021-01-21 13:38 | disposition home or self-care (01) ==
LOC: ED 10:11
DX: K57.90 Diverticulosis of intestine, part unspecified, without perforation or abscess without bleeding (principal); K74.60 Unspecified cirrhosis of liver; A59.9 Trichomoniasis, unspecified; N20.0 Calculus of kidney; F17.200 Nicotine dependence, unspecified, uncomplicated; Z79.899 Other long term (current) drug therapy
CPT/HCPCS: 36415; 74177; 80048; 80076; 81001; 85025; 85610; 85730; 86850; 86900; 86901; 87086; 87591; 96361; 96374; 96375; 99284; J2405; J3010; J7120; Q9967; 80320; G0480

== ENCOUNTER 2021-06-09 15:09 | Emergency (ER) | payer SELFPAY ==
--- NOTE | 2021-06-09 16:08 | XRay Report ---
XR chest routine 2V INDICATION / CLINICAL INFORMATION: chest pain COMPARISON: June 30, 2020 FINDINGS: SUPPORT DEVICES: None. HEART / MEDIASTINUM: No significant abnormality. LUNGS / PLEURA: Lungs are clear. Costophrenic sulci are sharp. No pneumothorax. ADDITIONAL FINDINGS: No significant additional findings. IMPRESSION: 1. No acute findings. Signer Name: Carlos Whitley MD Signed: 06/09/2021 4:04 PM Workstation Name: [id number]
[2021-06-09 17:02] LABS: Basophils # (Auto) 0.1 K/mm3 (0.0-0.1); Basophils % (Auto) 1.9 % (0.0-1.8); Eosinophils # (Auto) 0.1 K/mm3 (0.0-0.4); Hematocrit 35.1 % (35.5-45.6); Hemoglobin 11.9 gm/dl (11.8-15.2); Lymphocytes # (Auto) 1.4 K/mm3 (1.2-5.4); Lymphocytes % (Auto) 30.4 % (13.4-35.0); Mean Corpuscular HGB Conc 34 % (32-34); Mean Corpuscular Volume 109 fl (84-94); Monocytes # (Auto) 0.6 K/mm3 (0.0-0.8); Monocytes % (Auto) 13.5 % (0.0-7.3); Platelet Count 68 K/mm3 (140-440); Red Blood Count 3.23 M/mm3 (3.65-5.03); Red Cell Distribution Width 14.5 % (13.2-15.2)
[2021-06-09 17:12] LABS: Alanine Aminotransferase 51 units/L (7-56); Albumin 2.4 g/dL (3.9-5); BUN/Creatinine Ratio 9; Blood Urea Nitrogen 7 mg/dL (9-20); Calcium 7.9 mg/dL (8.4-10.2); Hemolysis Index 4
[2021-06-09] MEDS ORDERED: POTASSIUM CHLORIDE ER 20 MEQ TAB PO ONE (21:26)
[2021-06-09] MEDS ORDERED: KETOROLAC 30 MG/1 ML INJ IM ONE (21:34)
--- NOTE | 2021-06-09 21:39 | Emergency Department Report ---
ED Chest Pain HPI - General Chief Complaint: Chest Pain Stated Complaint: CHEST PAIN Time Seen by Provider: 06/09/21 21:22 Source: patient, EMS Mode of arrival: Stretcher Limitations: No Limitations - History of Present Illness Initial Comments: This is a 60-year-old -Russian male who presents to the emergency department via EMS with a complaint of some right-sided chest pain that started after lifting heavy boxes at work, which the patient says he has to do often. Through triage the patient says that his pain was 6 out of 10 in intensity. During my initial examination he says that it is intermittent. He denies any associated shortness of breath, back pain, nausea, vomiting or diaphoresis. Patient has history of kidney stones, gallstones, liver cirrhosis, and history of recurrent alcohol abuse. He has not taken anything for his symptoms prior to presentation. He is a tobacco smoker but denies any illicit drug use. No recent travel or sick contacts at home. - Related Data Previous Rx's Medication Instructions Recorded Last Taken Type Docusate Sodium [Colace] 100 mg PO BID #10 capsule 12/08/20 Unknown Rx Famotidine [Pepcid] 20 mg PO QDAY #30 tablet 01/21/21 Unknown Rx Luci Root [Luci] 250 mg PO QID PRN #30 capsule 01/21/21 Unknown Rx Allergies Allergy/AdvReac Type Severity Reaction Status Date / Time No Known Allergies Allergy Verified 01/21/21 10:13 Heart Score - HEART Score History: Slightly suspicious EKG: Normal Age: 45-65 Risk factors: 1-2 risk factors Troponin: < normal limit HEART Score: 2 - EKG Read Time Time EKG Completed: 16:17 EKG Read Time: 16:23 - Critical Actions Critical Actions: 0-3 pts:0.9-1.7%risk of adverse cardiac event.Candidate for discharge ED Review of Systems ROS: Stated complaint: CHEST PAIN Other details as noted in HPI Comment: All other systems reviewed and negative Constitutional: denies: chills, fever Eyes: denies: eye pain, vision change ENT: denies: ear pain, throat pain Respiratory: denies: cough, shortness of breath Cardiovascular: chest pain. denies: palpitations Gastrointestinal: denies: abdominal pain, vomiting Genitourinary: denies: dysuria, discharge Musculoskeletal: denies: back pain, arthralgia Skin: denies: rash, lesions Neurological: denies: headache, weakness ED Past Medical Hx - Past Medical History Previous Medical History?: Yes Hx Kidney Stones: Yes Additional medical history: Hx of gallstones, cirrhosis of the liver - Social History Smoking Status: Current Every Day Smoker Substance Use Type: Alcohol - Medications Home Medications: Home Medications Medication Instructions Recorded Confirmed Last Taken Type Docusate Sodium [Colace] 100 mg PO BID #10 capsule 12/08/20 Unknown Rx Famotidine [Pepcid] 20 mg PO QDAY #30 tablet 01/21/21 Unknown Rx Luci Root [Luci] 250 mg PO QID PRN #30 capsule 01/21/21 Unknown Rx ED Physical Exam - General Limitations: No Limitations - Other Other exam information: GENERAL: The patient is well-developed well-nourished. HENT: Normocephalic. Atraumatic. Patient has moist mucous membranes. EYES: Extraocular motions are intact. NECK: Supple. Trachea is midline. CHEST/LUNGS: Clear to auscultation. There is no respiratory distress noted. There is some reproducible right-sided chest wall tenderness to palpation. No crepitus or deformity. HEART/CARDIOVASCULAR: Regular. There is no tachycardia. There is no murmur. ABDOMEN: Abdomen is soft, nontender. Patient has normal bowel sounds. There is no abdominal distention. SKIN: Skin is warm and dry. NEURO: The patient is awake, alert, and oriented. The patient is cooperative. The patient has no focal neurologic deficits. Normal speech. MUSCULOSKELETAL: There is no tenderness or deformity. There is no limitation range of motion. ED Course Vital Signs 06/09/21 06/09/21 06/09/21 15:37 21:15 21:30 Temperature 98.2 F Pulse Rate 92 H 75 77 Respiratory 16 19 18 Rate Blood Pressure 125/69 112/67 111/66 O2 Sat by Pulse 94 98 97 Oximetry 06/09/21 06/09/21 06/09/21 21:46 22:00 22:16 Temperature Pulse Rate 71 86 68 Respiratory 16 14 17 Rate Blood Pressure 111/66 120/73 120/73 O2 Sat by Pulse 98 97 97 Oximetry 06/09/21 06/09/21 06/09/21 22:30 22:46 23:00 Temperature Pulse Rate 65 72 70 Respiratory 17 11 L 16 Rate Blood Pressure 118/69 118/69 112/76 O2 Sat by Pulse 97 98 96 Oximetry 06/09/21 06/09/21 06/09/21 23:16 23:30 23:46 Temperature Pulse Rate 70 69 94 H Respiratory 17 17 22 Rate Blood Pressure 112/76 129/72 129/72 O2 Sat by Pulse 96 97 95 Oximetry CLAUDY score - Claudy Score Age > 65: (0) No Aspirin use within the Past 7 Days: (0) No 3 or more CAD Risk Factors: (0) No 2 or more Angina events in past 24 hrs: (1) Yes (If pain is considered angina) Known CAD with more than 50% Stenosis: (0) No Elevated Cardiac Markers: (0) No ST Deviation Greater than 0.5mm: (0) No CLAUDY Score: 1 ED Medical Decision Making - Lab Data Result diagrams: 06/09/21 16:27 06/09/21 16:27 - EKG Data -: EKG Interpreted by Me EKG shows normal: sinus rhythm, axis, intervals, QRS complexes, ST-T waves Rate: normal - EKG Data When compared to previous EKG there are: previous EKG unavailable Interpretation: normal EKG - Radiology Data Radiology results: image reviewed interpreted by me: Chest x-ray does not show any acute process. There are no pleural effusions, obvious pneumonia and there is no pneumothorax. No widened mediastinum. - Medical Decision Making This patient presents to the emergency department with a complaint of some right-sided intermittent chest pains since he was lifting some heavy boxes at work. Heart and lung sounds are normal to auscultation. There is some reproducible chest wall tenderness to palpation without crepitus or deformity. EKG did not have any morphology consistent with ST elevation myocardial infarction. Chest x-ray does not show any pneumonia, pleural effusions, pneumothorax, widened mediastinum, or any other acute process. Labs have been unremarkable including CBC, metabolic panel and negative troponins x2, except for elevated AST and bilirubin. However these lab abnormalities are consistent with previous visits and his history of liver cirrhosis from alcohol abuse. Patient was given a dose of Toradol and upon reevaluation is feeling improved. Vital signs have been reassuring throughout his ED course. The patient has a low heart and CLAUDY score. He is low on the Wells score criteria negative on the pulmonary embolism rule out criteria. For all these reasons the patient appears safe for discharge home at this time. His contact information has been sent over to the [facility] vascular bath, and someone from their office should be contacting him shortly for close outpatient follow-up as part of our [facility] low risk chest pain protocol. The patient has also been given a referral for [facility] secondary to his history of liver cirrhosis and the elevated LFTs and bilirubin. We discussed avoiding further alcohol abuse and acetaminophen/Tylenol intake. Critical Care Time: No Critical care attestation.: If time is entered above; I have spent that time in minutes in the direct care of this critically ill patient, excluding procedure time. ED Disposition Clinical Impression: Atypical chest pain, Chest wall pain, Elevated LFTs, Elevated bilirubin, History of cirrhosis of liver Disposition: TO HOME OR SELFCARE Is pt being admited?: No Condition: Stable Instructions: Nonspecific Chest Pain, Adult, Chest Wall Pain Additional Instructions: Please follow-up with a primary care physician in the next few days. I am giving you a referral for [facility] to follow-up regarding your history of liver cirrhosis, elevated liver enzymes and elevated bilirubin. Please avoid any alcohol intake or acetaminophen/Tylenol use. Your contact information is being sent over to the [facility] vascular bath, and someone from their office should be contacting you shortly for close outpatient follow-up. Just in case I am giving you a referral for one of their supply assistant, Dr. Del Toro. Return to the emergency department with any worsening of your symptoms, new or concerning symptoms not addressed during this current emergency department vis it, or with any acute distress. Referrals: MARGARITA REYES MD [Primary Care Provider] - 2-3 Days JESSICA DEL TORO MD [Staff Physician] - 2-3 Days [facility] [Provider Group] - 2-3 Days Time of Disposition: 23:01
[2021-06-10 00:04] VITALS: BP 129/72
--- NOTE | 2021-06-10 10:17 | Electrocardiograph Report ---
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
== END 2021-06-10 00:05 | disposition home or self-care (01) ==
LOC: ED 15:09
DX: R07.89 Other chest pain (principal); R79.89 Other specified abnormal findings of blood chemistry; R17 Unspecified jaundice; F17.200 Nicotine dependence, unspecified, uncomplicated; Z87.19 Personal history of other diseases of the digestive system; Z79.899 Other long term (current) drug therapy
CPT/HCPCS: 36415; 71046; 80053; 84484; 85025; 93005; 96372; 99284; J1885

== ENCOUNTER 2021-08-22 12:08 | Emergency (ER) | payer SELFPAY ==
[2021-08-22] MEDS ORDERED: SODIUM CHLORIDE 0.9% 1000 ML 1,000 ML IV ONE (12:31)
--- NOTE | 2021-08-22 12:35 | Emergency Department Report ---
ED General Adult HPI - General Chief complaint: Dental/Oral Stated complaint: MOUTH PAIN Time Seen by Provider: 08/22/21 12:25 Source: patient Mode of arrival: Ambulatory Limitations: No Limitations - History of Present Illness Initial comments: Patient is 60 years old male with history of liver cirrhosis secondary to alcohol. Patient presented to the ER complaining of dental pain with oozing blood for the last 3 days. Patient found to be hypertensive with blood pressure of 80/40. Patient denied any fever or chills. No abdominal pain. No nausea or vomiting. Patient also denied any recent injury. - Related Data Previous Rx's Medication Instructions Recorded Last Taken Type Docusate Sodium [Colace] 100 mg PO BID #10 capsule 12/08/20 Unknown Rx Famotidine [Pepcid] 20 mg PO QDAY #30 tablet 01/21/21 Unknown Rx Luci Root [Luci] 250 mg PO QID PRN #30 capsule 01/21/21 Unknown Rx Allergies Allergy/AdvReac Type Severity Reaction Status Date / Time No Known Allergies Allergy Verified 01/21/21 10:13 ED Review of Systems ROS: Stated complaint: MOUTH PAIN Other details as noted in HPI Comment: All other systems reviewed and negative Constitutional: denies: chills, fever ENT: dental pain Respiratory: denies: cough, shortness of breath, SOB with exertion, SOB at rest, wheezing Cardiovascular: denies: chest pain, palpitations, dyspnea on exertion Gastrointestinal: denies: abdominal pain, nausea, vomiting, diarrhea, constipation, hematemesis, melena, hematochezia Musculoskeletal: denies: back pain Neurological: denies: headache, weakness, numbness, paresthesias, confusion, abnormal gait ED Past Medical Hx - Past Medical History Hx Kidney Stones: Yes Additional medical history: Hx of gallstones, cirrhosis of the liver - Social History Smoking Status: Current Every Day Smoker Substance Use Type: Alcohol - Medications Home Medications: Home Medications Medication Instructions Recorded Confirmed Last Taken Type Docusate Sodium [Colace] 100 mg PO BID #10 capsule 12/08/20 Unknown Rx Famotidine [Pepcid] 20 mg PO QDAY #30 tablet 01/21/21 Unknown Rx Luci Root [Luci] 250 mg PO QID PRN #30 capsule 01/21/21 Unknown Rx ED Physical Exam - General Limitations: No Limitations General appearance: alert, in no apparent distress - Head Head exam: Present: atraumatic, normocephalic, normal inspection - Eye Eye exam: Present: normal appearance, PERRL - ENT ENT exam: Present: mucous membranes dry, other (Loose upper left molar with gingival bleeding.) - Neck Neck exam: Present: normal inspection, full ROM. Absent: tenderness, meningismus, lymphadenopathy, thyromegaly - Respiratory Respiratory exam: Present: normal lung sounds bilaterally - Cardiovascular Cardiovascular Exam: Present: regular rate, normal rhythm, normal heart sounds - GI/Abdominal GI/Abdominal exam: Present: soft, normal bowel sounds. Absent: distended, tenderness, guarding, rebound, rigid, organomegaly, mass, bruit, pulsatile mass, hernia - Extremities Exam Extremities exam: Present: normal inspection, full ROM, normal capillary refill. Absent: tenderness, pedal edema, joint swelling, calf tenderness - Back Exam Back exam: Present: normal inspection, full ROM. Absent: CVA tenderness (R), CVA tenderness (L) - Neurological Exam Neurological exam: Present: alert, oriented X3, CN II-XII intact - Psychiatric Psychiatric exam: Present: normal mood - Skin Skin exam: Present: warm, intact, normal color ED Course Vital Signs 08/22/21 08/22/21 12:25 13:48 Temperature 98.5 F 98.5 F Pulse Rate 103 H 81 Respiratory 18 18 Rate Blood Pressure 88/50 129/70 O2 Sat by Pulse 96 100 Oximetry ED Medical Decision Making - Lab Data Result diagrams: 08/22/21 12:40 08/22/21 12:40 - Medical Decision Making Patient is 60 years old male with history of liver cirrhosis secondary to alcohol. Patient presented to the ER complaining of dental pain with oozing blood for the last 3 days. Patient found to be hypertensive with blood pressure of 80/40. Patient denied any fever or chills. No abdominal pain. No nausea or vomiting. Patient also denied any recent injury. Patient labs reviewed and is unremarkable except for his chronic liver function impairment. Potassium is 2.5. Patient received potassium chloride 20 mEq IV and 40 mEq p.o. Patient blood pressure improved significantly with 1 L of normal saline. Patient given prescription for amoxicillin and advised to follow-up with his dentist in the next 2 to 3 days and his primary care physician also in the next 2 to 3 days and to return to the ER if he develop any new symptoms. Critical Care Time: Yes Critical care time in (mins) excluding proc time.: 30 Critical care attestation.: If time is entered above; I have spent that time in minutes in the direct care of this critically ill patient, excluding procedure time. ED Disposition Clinical Impression: Acute hypotension, Liver cirrhosis, Pain, dental, Gingival bleeding, Acute hypokalemia Disposition: 01 HOME / SELF CARE / HOMELESS Is pt being admited?: No Condition: Stable Instructions: Hypotension, [id number], Hypokalemia, Cirrhosis Referrals: [facility] [Outside] - 3-5 Days
[2021-08-22 13:22] LABS: Alanine Aminotransferase 36 units/L (7-56); Albumin 2.5 g/dL (3.9-5); BUN/Creatinine Ratio 19; Blood Urea Nitrogen 17 mg/dL (9-20); Calcium 8.4 mg/dL (8.4-10.2); Hemolysis Index 0
[2021-08-22 13:32] LABS: Basophils # (Auto) 0.1 K/mm3 (0.0-0.1); Basophils % (Auto) 1.4 % (0.0-1.8); Eosinophils # (Auto) 0.1 K/mm3 (0.0-0.4); Eosinophils % (Auto) 2.6 % (0.0-4.3); Hematocrit 32.3 % (35.5-45.6); Hemoglobin 11.1 gm/dl (11.8-15.2); Lymphocytes # (Auto) 1.1 K/mm3 (1.2-5.4); Lymphocytes % (Auto) 20.4 % (13.4-35.0); Mean Corpuscular HGB Conc 34 % (32-34); Mean Corpuscular Volume 109 fl (84-94); Monocytes # (Auto) 0.8 K/mm3 (0.0-0.8); Monocytes % (Auto) 14.5 % (0.0-7.3); Red Blood Count 2.97 M/mm3 (3.65-5.03); Red Cell Distribution Width 14.6 % (13.2-15.2)
[2021-08-22 13:33] LABS: Platelet Count 70 K/mm3 (140-440)
[2021-08-22 13:38] LABS: INR 1.33 (0.87-1.13)
[2021-08-22 13:39] LABS: Partial Thromboplastin Time 31.7 Sec. (24.2-36.6)
[2021-08-22 13:51] VITALS: BP 129/70
[2021-08-22] MEDS ORDERED: POTASSIUM CHLORIDE ER 20 MEQ TAB PO ONE (15:05)
[2021-08-22] MEDS ORDERED: SODIUM CHLORIDE 0.9% 1000 ML 1,000 ML ONE (15:56)
[2021-08-22] MEDS ORDERED: POTASSIUM CHLORIDE 10 MEQ 10 MEQ/100 ML BAG IV SCH (16:00)
== END 2021-08-22 17:39 | disposition home or self-care (01) ==
LOC: ED 12:08
DX: I95.9 Hypotension, unspecified (principal); K74.60 Unspecified cirrhosis of liver; E87.6 Hypokalemia; K06.8 Other specified disorders of gingiva and edentulous alveolar ridge; F17.200 Nicotine dependence, unspecified, uncomplicated; Z87.442 Personal history of urinary calculi; Z72.89 Other problems related to lifestyle; Z79.899 Other long term (current) drug therapy
CPT/HCPCS: 36415; 80053; 85025; 85610; 85730; 96361; 96365; 99283; J3480; J7030

== ENCOUNTER 2021-10-11 13:10 | Emergency (ER) | payer SELFPAY ==
[2021-10-11 13:14] VITALS: BP 113/63
[2021-10-11 15:00] LABS: Hematocrit 32.7 % (35.5-45.6); Hemoglobin 10.5 gm/dl (11.8-15.2); Mean Corpuscular HGB Conc 32 % (32-34); Mean Corpuscular Volume 103 fl (84-94); Platelet Count 75 K/mm3 (140-440); Red Blood Count 3.17 M/mm3 (3.65-5.03)
--- NOTE | 2021-10-11 16:36 | Emergency Department Report ---
ED GI Bleed HPI - General Chief complaint: GI Bleed Stated complaint: RECTAL BLEEDING Time Seen by Provider: 10/11/21 13:18 Source: patient Mode of arrival: Ambulatory Limitations: No Limitations - History of Present Illness Initial comments: 60-year-old male presents to the emergency department complaining of rectal bleeding and pain. Symptoms started for 5 days ago. He has had the symptoms before but seems that it is more uncomfortable this time. He denies any recent injury or illness. He denies any abdominal pain. He has noticed blood streaks on the paper and in the bowl. He denies any melena. He also notes decreased amount of seminal fluid and feels like there may be some blood in his semen. He denies any dysuria, hematuria, difficulty urinating or painful ejaculation. He denies any fever or chills, dizziness or lightheadedness, near-syncope or syncope. MD complaint: blood on toilet paper Onset/Timin (days) Severity scale (0 -10): 4 Improves with: none Worsens with: none Context: history of GI bleed (Diverticulitis) Associated Symptoms: abdominal pain, nausea, vomiting, syncope, weakness Treatments Prior to Arrival: OTC meds, topical ointment - Related Data Previous Rx's Medication Instructions Recorded Last Taken Type Docusate Sodium [Colace] 100 mg PO BID #10 capsule 12/08/20 Unknown Rx Famotidine [Pepcid] 20 mg PO QDAY #30 tablet 01/21/21 Unknown Rx Luci Root [Luci] 250 mg PO QID PRN #30 capsule 01/21/21 Unknown Rx Amoxicillin [Amoxicillin TAB] 875 mg PO BID #14 tablet 08/22/21 Unknown Rx Naproxen [Naprosyn] 500 mg PO BID #14 tablet 08/22/21 Unknown Rx Zinc/Xylo/Neosp/Vit A&D [Butt 50 applic TP PRN PRN #1 jar 10/11/21 Unknown Rx Paste/Lidocaine] Allergies Allergy/AdvReac Type Severity Reaction Status Date / Time No Known Allergies Allergy Verified 01/21/21 10:13 ED Review of Systems ROS: Stated complaint: RECTAL BLEEDING Other details as noted in HPI Gastrointestinal: hematochezia Genitourinary: other (Hematospermia) ED Past Medical Hx - Past Medical History Previous Medical History?: No Hx Kidney Stones: Yes Additional medical history: Hx of gallstones, cirrhosis of the liver - Surgical History Past Surgical History?: No - Social History Smoking Status: Current Every Day Smoker Substance Use Type: Alcohol - Medications Home Medications: Home Medications Medication Instructions Recorded Confirmed Last Taken Type Docusate Sodium [Colace] 100 mg PO BID #10 capsule 12/08/20 Unknown Rx Famotidine [Pepcid] 20 mg PO QDAY #30 tablet 01/21/21 Unknown Rx Luci Root [Luci] 250 mg PO QID PRN #30 capsule 01/21/21 Unknown Rx Amoxicillin [Amoxicillin TAB] 875 mg PO BID #14 tablet 08/22/21 Unknown Rx Naproxen [Naprosyn] 500 mg PO BID #14 tablet 08/22/21 Unknown Rx Zinc/Xylo/Neosp/Vit A&D [Butt 50 applic TP PRN PRN #1 jar 10/11/21 Unknown Rx Paste/Lidocaine] ED Physical Exam - General Limitations: No Limitations General appearance: alert, in no apparent distress - Head Head exam: Present: atraumatic, normocephalic - Eye Eye exam: Present: normal appearance - ENT ENT exam: Present: mucous membranes moist - Neck Neck exam: Present: normal inspection - Respiratory Respiratory exam: Present: normal lung sounds bilaterally. Absent: respiratory distress - Cardiovascular Cardiovascular Exam: Present: regular rate, normal rhythm. Absent: systolic murmur, diastolic murmur, rubs, gallop - GI/Abdominal GI/Abdominal exam: Present: soft, normal bowel sounds - Rectal Rectal exam: Present: deferred, normal rectal tone, tenderness, other (Inflammatory changes in the perirectal skin with minimal breakdown.) - exam: Present: normal inspection External exam: Present: normal external exam - Extremities Exam Extremities exam: Present: normal inspection - Back Exam Back exam: Present: normal inspection - Neurological Exam Neurological exam: Present: alert, oriented X3 - Psychiatric Psychiatric exam: Present: normal affect, normal mood - Skin Skin exam: Present: warm, dry, intact, normal color. Absent: rash ED Course Vital Signs 10/11/21 13:12 Temperature 98.8 F Pulse Rate 109 H Respiratory 18 Rate Blood Pressure 113/63 [Left] O2 Sat by Pulse 99 Oximetry ED Medical Decision Making - Lab Data Result diagrams: 10/11/21 14:44 - Medical Decision Making The patient does have anemia with some thrombocytopenia. There are no indications of any acute infection. He has no abdominal tenderness to suggest diverticulitis. I do think he needs to follow-up with someone regarding his anemia/thrombocytopenia in the face of ongoing rectal bleeding. Critical care attestation.: If time is entered above; I have spent that time in minutes in the direct care of this critically ill patient, excluding procedure time. ED Disposition Clinical Impression: Anemia, Thrombocytopenia, Rectal bleeding Disposition: HOME / SELF CARE / HOMELESS Is pt being admited?: No Condition: Stable Instructions: Rectal Bleeding Prescriptions: Zinc/Xylo/Neosp/Vit A&D [Butt Paste/Lidocaine] 50 applic TP PRN PRN #1 jar PRN Reason: Skin Irritation Referrals: PRIMARY CARE, [Primary Care Provider] - 3-5 Days [facility] [Provider Group] - 3-5 Days
[2021-10-11 17:07] LABS: Bilirubin,Urine SM (Negative); Blood,Urine NEG (Negative); Calcium Oxalate Crystals,Urine 1+; Color,Urine Amber (Yellow); Mucus,Urine FEW /HPF; Protein,Urine <15 mg/dL mg/dL (Negative)
[2021-10-11 17:09] LABS: Ictotest,Urine Positive (Negative)
== END 2021-10-11 17:15 | disposition home or self-care (01) ==
LOC: ED 13:10
DX: D64.9 Anemia, unspecified (principal); D69.6 Thrombocytopenia, unspecified; K62.5 Hemorrhage of anus and rectum; F17.200 Nicotine dependence, unspecified, uncomplicated; F10.20 Alcohol dependence, uncomplicated; Z87.442 Personal history of urinary calculi
CPT/HCPCS: 36415; 81001; 85027; 99282; 99283

== ENCOUNTER 2022-06-09 19:10 | Emergency (ER) | payer SELFPAY ==
[2022-06-09 20:38] VITALS: BP 131/60
[2022-06-09] MEDS ORDERED: chlordiazePOXIDE 25 MG CAP PO PRN ×2 (20:57)
[2022-06-09] MEDS ORDERED: LORazepam 2 MG/ML VIAL IV PRN (20:57)
[2022-06-09] MEDS ORDERED: LORazepam 2 MG TAB PO PRN ×2 (20:57)
[2022-06-09] MEDS ORDERED: LORazepam 2 MG/ML VIAL IM PRN (20:58)
[2022-06-09] MEDS ORDERED: HALOPERIDOL LACTATE 5 MG/1 ML INJ IM PRN (20:58)
[2022-06-09] MEDS ORDERED: DEXTROSE 50% IN WATER (25GM) 50 ML SYRINGE IV PRN (20:58)
--- NOTE | 2022-06-09 21:01 | Emergency Department Report ---
ED General Adult HPI - General Chief complaint: Chest Pain Stated complaint: CHEST PAIN Time Seen by Provider: 06/09/22 20:40 Source: patient, EMS (EMS documentation is reviewed and appreciated), RN notes reviewed, old records reviewed Mode of arrival: Stretcher Limitations: No Limitations - History of Present Illness Initial comments: The patient was evaluated in the emergency department for symptoms described in the history of present illness. He/she was evaluated in the context of the global COVID-19 pandemic, which necessitated consideration that the patient might be at risk for infection with the virus that causes COVID-19. Institutional protocols and algorithms that pertain to the evaluation of patients at risk for COVID-19 are in a state of rapid change based on information released by regulatory bodies including the CDC and federal and state organizations. These policies and algorithms were followed during the patient's care in the emergency department. Please note that these policies, procedures and recommendations changed on a rapid basis. This is a pleasant and cooperative 61-year-old gentleman who presents to the ER today with a complaint of months of anterior chest wall pain. The pain is central, right-sided and left-sided. It does not radiate to the back, arms or neck. There is no vomiting, diaphoresis or exertional shortness of breath. He denies travel, surgery, immobilization, DVT and pulmonary embolism risk factors. He does report recreational alcohol consumption earlier on this morning. He denies homicidality and suicidality. Patient was found to have reproducible chest wall pain as per EMS documentation. EMS documented essentially unremarkable vital signs in the field. Patient is now currently sitting comfortably on her stretcher, in no acute distress, asking to watch TV. -: month(s) Location: chest Quality: aching Consistency: intermittent Improves with: rest Worsens with: movement (Movement and palpation) - Related Data Previous Rx's Medication Instructions Recorded Last Taken Type Docusate Sodium [Colace] 100 mg PO BID #10 capsule 12/08/20 Unknown Rx Famotidine [Pepcid] 20 mg PO QDAY #30 tablet 01/21/21 Unknown Rx Luci Root [Ulci] 250 mg PO QID PRN #30 capsule 01/21/21 Unknown Rx Amoxicillin [Amoxicillin TAB] 875 mg PO BID #14 tablet 08/22/21 Unknown Rx Zinc/Xylo/Neosp/Vit A&D [Butt 50 applic TP PRN PRN #1 jar 11/16/21 Unknown Rx Paste/Lidocaine] Acetaminophen [Non-Aspirin Extra 500 mg PO Q6HR PRN #30 tablet 06/09/22 Unknown Rx Strength] Famotidine [Pepcid] 20 mg PO BID #60 tablet 06/09/22 Unknown Rx Multivitamin with Folic Acid [Cvs 400 mcg PO QDAY #30 tablet 06/09/22 Unknown Rx One Daily Essential Tablet] chlordiazePOXIDE [Librium] 25 mg PO Q6H PRN #25 capsule 06/09/22 Unknown Rx Allergies Allergy/AdvReac Type Severity Reaction Status Date / Time No Known Allergies Allergy Verified 01/21/21 10:13 ED Review of Systems ROS: Stated complaint: CHEST PAIN Other details as noted in HPI Constitutional: denies: fever Eyes: denies: eye discharge ENT: denies: epistaxis Respiratory: denies: wheezing Cardiovascular: chest pain Gastrointestinal: denies: abdominal pain Neurological: denies: weakness Psychiatric: denies: auditory hallucinations, visual hallucinations, homicidal thoughts, suicidal thoughts ED Past Medical Hx - Past Medical History Previous Medical History?: Yes Hx Kidney Stones: Yes Additional medical history: Hx of gallstones, cirrhosis of the liver - Surgical History Past Surgical History?: No - Social History Smoking Status: Current Every Day Smoker Substance Use Type: Alcohol - Medications Home Medications: Home Medications Medication Instructions Recorded Confirmed Last Taken Type Docusate Sodium [Colace] 100 mg PO BID #10 capsule 12/08/20 Unknown Rx Famotidine [Pepcid] 20 mg PO QDAY #30 tablet 01/21/21 Unknown Rx Luci Root [Luci] 250 mg PO QID PRN #30 capsule 01/21/21 Unknown Rx Amoxicillin [Amoxicillin TAB] 875 mg PO BID #14 tablet 08/22/21 Unknown Rx Zinc/Xylo/Neosp/Vit A&D [Butt 50 applic TP PRN PRN #1 jar 10/11/21 Unknown Rx Paste/Lidocaine] Acetaminophen [Non-Aspirin Extra 500 mg PO Q6HR PRN #30 tablet 06/09/22 Unknown Rx Strength] Famotidine [Pepcid] 20 mg PO BID #60 tablet 06/09/22 Unknown Rx Multivitamin with Folic Acid [Cvs 400 mcg PO QDAY #30 tablet 06/09/22 Unknown Rx One Daily Essential Tablet] chlordiazePOXIDE [Librium] 25 mg PO Q6H PRN #25 capsule 06/09/22 Unknown Rx ED Physical Exam - General Limitations: No Limitations General appearance: alert, appears intoxicated - Head Head exam: Present: atraumatic, normocephalic - Eye Eye exam: Present: normal appearance, EOMI. Absent: nystagmus - ENT ENT exam: Present: normal exam, normal orophraynx, mucous membranes moist, normal external ear exam - Neck Neck exam: Present: normal inspection, full ROM. Absent: tenderness, meningismus - Respiratory Respiratory exam: Present: normal lung sounds bilaterally, chest wall tenderness. Absent: respiratory distress, wheezes, rales, rhonchi, stridor - Cardiovascular Cardiovascular Exam: Present: regular rate, normal rhythm, normal heart sounds. Absent: bradycardia, tachycardia, irregular rhythm, systolic murmur, diastolic murmur, rubs, gallop - GI/Abdominal GI/Abdominal exam: Present: soft. Absent: distended, tenderness, guarding, rebound, rigid, pulsatile mass - Rectal Rectal exam: Present: deferred - Extremities Exam Extremities exam: Present: normal inspection, full ROM, normal capillary refill, other (2+ pulses noted in the bilateral upper and lower extremities. There is no palpable cord. negative Homans sign. Muscular compartments are soft. The pelvis is stable.). Absent: pedal edema, calf tenderness - Back Exam Back exam: Present: normal inspection. Absent: tenderness, CVA tenderness (R), CVA tenderness (L), paraspinal tenderness, vertebral tenderness - Neurological Exam Neurological exam: Present: alert, oriented X3, other (No facial droop. Tongue midline. Extraocular movements intact bilaterally. Facial sensation intact to light touch in V1, V2, V3 distribution bilaterally. 5 and a 5 strength in 4 extremities. Sensation intact to light touch in 4 extremities.). Absent: motor sensory deficit - Psychiatric Psychiatric exam: Absent: manic, homicidal ideation, suicidal ideation - Skin Skin exam: Present: warm, dry, intact, normal color. Absent: rash ED Course Vital Signs 06/09/22 20:33 Temperature 97.7 F Pulse Rate 66 Respiratory 16 Rate Blood Pressure 131/60 O2 Sat by Pulse 97 Oximetry - Reevaluation(s) Reevaluation #1: 06/09/22 21:46 Differential diagnosis, including but not limited to: GERD, gastritis, hiatal hernia, costochondritis, electrolyte derangement, alcohol dependence Assessment and plan: 61-year-old gentleman, who is not currently tachycardic, tachypneic or hypoxic, who denies DVT and pulmonary embolism risk factors, who is low risk by Wells criteria for pulmonary embolism, EKG unchanged from prior, presuming troponin negative x1, symptoms present for greater than 8 hours, and present for weeks/months. Acute myocardial infarction will be ruled out with 1 set of negative troponins. Patient has equal pulses in the upper and lower extremities, no pulsatile abdominal mass, and an unremarkable x-ray of the chest, therefore, aortic disease is very unlikely. Patient at low risk for major adverse cardiac event as per heart score. There is reproducible chest wall tenderness. Patient endorses alcohol consumption. He does not meet criteria for 1013 hold or involuntary confinement. We will treat his symptoms, obtain appropriate laboratory studies, and reassess. I discussed the plan of care with the patient. He is agreeable to the plan of care 06/09/22 22:46 Patient is reassessed. He is in no acute distress. Laboratory studies are essentially at baseline. Thrombocytopenia, transaminitis, hyperbilirubinemia is chronic. He is clinically sober at this time. Troponin is negative x1 in the context of hours and days of symptoms. Low risk for major adverse cardiac event as per heart score. Mild dehydration/metabolic acidosis likely secondary to alcoholism and malnutrition. ED Medical Decision Making - Lab Data Result diagrams: 06/09/22 21:37 06/09/22 21:37 Vital Signs 06/09/22 20:33 Temperature 97.7 F Pulse Rate 66 Respiratory 16 Rate Blood Pressure 131/60 O2 Sat by Pulse 97 Oximetry Lab Results 06/09/22 06/09/22 06/09/22 Range/Units 21:37 21:37 21:37 WBC 6.0 (4.5-11.0) K/mm3 RBC 3.60 L (3.65-5.03) M/mm3 Hgb 12.8 (11.8-15.2) gm/dl Hct 37.9 (35.5-45.6) % MCV 105 H (84-94) fl MCH 36 H (28-32) pg MCHC 34 (32-34) % RDW 14.9 (13.2-15.2) % Plt Count 77 L (140-440) K/mm3 PT 16.6 H (12.2-14.9) Sec. INR 1.17 H (0.87-1.13) Sodium 137 (137-145) mmol/L Potassium 3.9 (3.6-5.0) mmol/L Chloride 106.4 (98-107) mmol/L Carbon Dioxide 16 L (22-30) mmol/L Anion Gap 19 mmol/L BUN 15 (9-20) mg/dL Creatinine 1.4 H (0.8-1.3) mg/dL Estimated GFR > 60 ml/min BUN/Creatinine Ratio 11 % Glucose 109 H (75-100) mg/dL Calcium 8.4 (8.4-10.2) mg/dL Magnesium 1.60 L (1.7-2.3) mg/dL Total Bilirubin 2.20 H (0.1-1.2) mg/dL AST 83 H (5-40) units/L ALT 35 (7-56) units/L Alkaline Phosphatase 198 H (35-129) units/L Total Creatine Kinase 208 H (55-170) units/L Troponin T < 0.010 (0.00-0.029) ng/mL Total Protein 7.6 (6.3-8.2) g/dL Albumin 2.6 L (3.9-5) g/dL Albumin/Globulin Ratio 0.5 % Salicylates (2.8-20.0) mg/dL Acetaminophen (10.0-30.0) ug/mL Plasma/Serum Alcohol (0-0.07) % 06/09/22 06/09/22 06/09/22 Range/Units 21:37 21:37 21:37 WBC (4.5-11.0) K/mm3 RBC (3.65-5.03) M/mm3 Hgb (11.8-15.2) gm/dl Hct (35.5-45.6) % MCV (84-94) fl MCH (28-32) pg MCHC (32-34) % RDW (13.2-15.2) % Plt Count (140-440) K/mm3 PT (12.2-14.9) Sec. INR (0.87-1.13) Sodium (137-145) mmol/L Potassium (3.6-5.0) mmol/L Chloride (98-107) mmol/L Carbon Dioxide (22-30) mmol/L Anion Gap mmol/L BUN (9-20) mg/dL Creatinine (0.8-1.3) mg/dL Estimated GFR ml/min BUN/Creatinine Ratio % Glucose (75-100) mg/dL Calcium (8.4-10.2) mg/dL Magnesium (1.7-2.3) mg/dL Total Bilirubin (0.1-1.2) mg/dL AST (5-40) units/L ALT (7-56) units/L Alkaline Phosphatase (35-129) units/L Total Creatine Kinase (55-170) units/L Troponin T (0.00-0.029) ng/mL Total Protein (6.3-8.2) g/dL Albumin (3.9-5) g/dL Albumin/Globulin Ratio % Salicylates 1.5 L (2.8-20.0) mg/dL Acetaminophen 5.0 L (10.0-30.0) ug/mL Plasma/Serum Alcohol 0.11 H (0-0.07) % - EKG Data -: EKG Interpreted by Nv EKG shows normal: sinus rhythm Rate: normal - EKG Data Interpretation: unchanged when compared t 06/09/22 21:42 The EKG is interpreted at 20: 26 Sinus rhythm, rate 69 bpm. Normal axis, normal P wave axis, motion artifact, left ventricular hypertrophy, not a STEMI, QTC 4 7 1 ms. This is an abnormal EKG. This is unchanged from prior EKG from May 2021 - Radiology Data Radiology results: pending, report reviewed, image reviewed [facility] [address] [place] [address] XRay Report Signed Patient: ESMER CAMPOS MR#: [id number] : 1960 Acct:[id number] Age/Sex: 61 / M ADM Date: 06/09/22 Loc: ED Attending Dr: Ordering Physician: GABRIELLE LANGSTON MD Date of Service: 06/09/22 Procedure(s): XR chest 1V ap Accession Number(s): [id number] cc: GABRIELLE LANGSTON MD Fluoro Time In Minutes: CHEST 1 VIEW 06/09/2022 8:23 PM INDICATION / CLINICAL INFORMATION: chest wall pain. COMPARISON: 06/09/2021 FINDINGS: SUPPORT DEVICES: None. HEART / MEDIASTINUM: No significant abnormality. LUNGS / PLEURA: No significant pulmonary or pleural abnormality. No pneumo thorax. ADDITIONAL FINDINGS: No significant additional findings. IMPRESSION: 1. No acute findings. Signer Name: Aldo Rebolledo DO Signed: 06/09/2022 9:29 PM Workstation Name: [id number] Transcribed By: KERRI Dictated By: ALDO REBOLLEDO DO Electronically Authenticated By: ALDO REBOLLEDO DO Signed Date/Time: 06/09/222128 DD/ 27 TD/TT: Critical care attestation.: If time is entered above; I have spent that time in minutes in the direct care of this critically ill patient, excluding procedure time. ED Disposition Clinical Impression: Chest wall pain, Alcohol use, Alcoholic liver disease, Hypomagnesemia, Thrombocytopenia Disposition: 01 HOME / SELF CARE / HOMELESS Is pt being admited?: No Does the pt Need Aspirin: No Condition: Good Instructions: Costochondritis, Alcoholic Liver Disease Additional Instructions: Recommend that patient avoid consumption of alcohol, tobacco, smoke products, Motrin, ibuprofen, Naprosyn, Aleve, heavy and spicy foods. Take a multivitamin on a daily basis [id number], consume foods that are high in potassium/magnesium/calcium, such as banana, avocado, potato. May take [id number] pain medicine such as Tylenol, Pepcid or famotidine for chest wall pain. Recommend follow-up with a primary care doctor within the next week. Please return to the emergency room right away with new pain, worsened pain, migration of pain, projectile vomiting, change in mental status, confusion, inability tolerate liquid feeds, new, worsened or different symptoms not present on the initial emergency room evaluation Please have your primary care doctor contact medical records department, to follow-up on nonemergent incidental abnormal laboratory studies and findings which have been present for months and years Referrals: HARRY STONER MD [Primary Care Provider] - 3-5 Days Forms: Work/School Release Form(ED) Heart Score - HEART Score History: Slightly suspicious EKG: Non-specific Age: 45-65 Risk factors: 1-2 risk factors Troponin: < normal limit HEART Score: 3 - EKG Read Time Time EKG Completed: 20:26 EKG Read Time: 20:26 - Critical Actions Critical Actions: 0-3 pts:0.9-1.7%risk of adverse cardiac event.Candidate for discharge
--- NOTE | 2022-06-09 21:33 | XRay Report ---
CHEST 1 VIEW 06/09/2022 8:23 PM INDICATION / CLINICAL INFORMATION: chest wall pain. COMPARISON: 06/09/2021 FINDINGS: SUPPORT DEVICES: None. HEART / MEDIASTINUM: No significant abnormality. LUNGS / PLEURA: No significant pulmonary or pleural abnormality. No pneumothorax. ADDITIONAL FINDINGS: No significant additional findings. IMPRESSION: 1. No acute findings. Signer Name: Aldo Luther DO Signed: 06/09/2022 9:29 PM Workstation Name: [id number]
[2022-06-09 22:04] LABS: Hematocrit 37.9 % (35.5-45.6); Hemoglobin 12.8 gm/dl (11.8-15.2); Mean Corpuscular HGB Conc 34 % (32-34); Mean Corpuscular Volume 105 fl (84-94); Red Cell Distribution Width 14.9 % (13.2-15.2)
[2022-06-09 22:10] LABS: Platelet Count 77 K/mm3 (140-440)
[2022-06-09 22:14] LABS: INR 1.17 (0.87-1.13)
[2022-06-09 22:27] LABS: Alanine Aminotransferase 35 units/L (7-56); Albumin 2.6 g/dL (3.9-5); BUN/Creatinine Ratio 11; Blood Urea Nitrogen 15 mg/dL (9-20); Calcium 8.4 mg/dL (8.4-10.2); Hemolysis Index 10
[2022-06-09] MEDS ORDERED: MAGNESIUM OXIDE 400 MG TAB PO STA (22:33)
[2022-06-09] MEDS ORDERED: ACETAMINOPHEN 325 MG TAB PO ONE (22:33)
[2022-06-09] MEDS ORDERED: MULTIVITAMINS ,THERAPEUTIC TAB PO ONE (22:33)
[2022-06-09] MEDS ORDERED: PANTOPRAZOLE 40 MG TAB PO ONE (22:33)
--- NOTE | 2022-06-11 15:13 | Electrocardiograph Report ---
[facility] Test Date: 2022-06-09 Test Time: 20:26:37 Pat Name: ESMER CAMPOS Department: Room: Gender: M Field Examiner: TOÑITO : 1960 Requested By: GABRIELLE LANGSTON Order Number: [id number] Reading MD: Garry Lopez Measurements Intervals [place] Rate: 69 P: 35 NM: 159 QRS: -1 QRSD: 89 T: 3 QT: 441 QTc: 471 Interpretive Statements Sinus rhythm Compared to ECG 06/09/2021 16:17:58 No significant changes Electronically Signed On 06-11-2022 15:13:08 EDT by Garry Lopez
== END 2022-06-09 23:20 | disposition home or self-care (01) ==
LOC: ED 19:10
DX: R07.9 Chest pain, unspecified (principal); F10.10 Alcohol abuse, uncomplicated; K70.9 Alcoholic liver disease, unspecified; E83.42 Hypomagnesemia; D69.6 Thrombocytopenia, unspecified; N20.0 Calculus of kidney; F17.200 Nicotine dependence, unspecified, uncomplicated; Z79.899 Other long term (current) drug therapy
CPT/HCPCS: 36415; 71045; 80053; 80320; 82550; 83735; 84484; 85027; 85610; 93005; 99284; G0480

== ENCOUNTER 2022-08-24 15:19 | Emergency (ER) | payer SELFPAY ==
--- NOTE | 2022-08-24 16:17 | Event Note ---
ED Screening Note Date of service: 08/24/22 Time: 16:15 ED Screening Note: This initial assessment/diagnostic orders/clinical plan/treatment(s) is/are subject to change based on patients health status, clinical progression and re- assessment by fellow clinical providers in the ED. Further treatment and workup at subsequent clinical providers discretion. Patient/guardian urged not to elope from the ED as their condition may be serious if not clinically assessed and managed. Patient with history of alcoholic liver disease/cirrhosis presents with swelling legs and abdomen. No prior pericentesis. No history CHF or renal disease. Non-toxic appearing. Initial orders include: My Active Orders 08/24/22 16:12 Blood Alcohol Stat Complete Blood Count Auto Diff Stat Comprehensive Metabolic Panel Stat Creatine Kinase Stat Lipase Stat UDS [Drugs of Abuse Panel, Urine] Stat 08/24/22 16:14 ua [Urinalysis Complete] Stat
[2022-08-24 20:10] LABS: Amphetamine Screen,Urine Negative; Benzodiazepines Screen,Urine Negative; Cannabinoid Screen,Urine Negative; Cocaine Screen,Urine Negative; Methadone Screen,Urine Negative; Opiate Screen,Urine Negative
[2022-08-24 20:12] LABS: Bilirubin,Urine NEG (Negative); Blood,Urine NEG (Negative); Color,Urine Amber (Yellow); Protein,Urine <15 mg/dL mg/dL (Negative)
[2022-08-24 20:23] LABS: Bacteria,Urine 1+ /HPF (Negative)
[2022-08-24 21:05] LABS: Basophils % (Auto) 1.1 % (0.0-1.8); Eosinophils # (Auto) 0.1 K/mm3 (0.0-0.4); Eosinophils % (Auto) 2.8 % (0.0-4.3); Hematocrit 36.3 % (35.5-45.6); Hemoglobin 11.9 gm/dl (11.8-15.2); Lymphocytes # (Auto) 1.3 K/mm3 (1.2-5.4); Lymphocytes % (Auto) 31.6 % (13.4-35.0); Mean Corpuscular HGB Conc 33 % (32-34); Monocytes # (Auto) 0.6 K/mm3 (0.0-0.8); Monocytes % (Auto) 14.5 % (0.0-7.3); Red Blood Count 3.27 M/mm3 (3.65-5.03); Red Cell Distribution Width 15.8 % (13.2-15.2)
[2022-08-24 21:18] LABS: Mean Corpuscular Volume 111 fl (84-94); Platelet Count 80 K/mm3 (140-440)
[2022-08-24 21:45] LABS: Alanine Aminotransferase 39 units/L (7-56); Albumin 2.4 g/dL (3.9-5); Blood Urea Nitrogen 7 mg/dL (9-20); Calcium 8.5 mg/dL (8.4-10.2); Hemolysis Index 0
[2022-08-24 22:00] LABS: BUN/Creatinine Ratio 12
[2022-08-25] MEDS ORDERED: cephALEXin 500 MG CAP PO ONE (06:01)
[2022-08-25] MEDS ORDERED: FUROSEMIDE 20 MG TAB PO ONE (06:01)
[2022-08-25] MEDS ORDERED: POTASSIUM CHLORIDE ER 20 MEQ TAB PO ONE (06:01)
--- NOTE | 2022-08-25 06:04 | XRay Report ---
CHEST 2 VIEWS INDICATION / CLINICAL INFORMATION: leg swelling. COMPARISON: 06/09/2022 FINDINGS: SUPPORT DEVICES: None. HEART / MEDIASTINUM: Cardiomegaly and central pulmonary venous congestion. LUNGS / PLEURA: No significant pulmonary or pleural abnormality. No pneumothorax. ADDITIONAL FINDINGS: Calcific atherosclerosis of the thoracic aorta. IMPRESSION: 1. Central pulmonary venous congestion, possibly secondary to mild CHF. No ailyn pulmonary edema or o ther acute chest process. Signer Name: Wei Aguirre MD Signed: 08/25/2022 6:00 AM Workstation Name: [id number]
[2022-08-25] MEDS ORDERED: oxyCODONE /ACETAMINOPHEN 5-325MG TAB PO ONE (06:05)
--- NOTE | 2022-08-25 07:00 | Emergency Department Report ---
ED Extremity Problem HPI - General Chief complaint: Extremity Injury, Lower Stated complaint: ANKLE SWOLLEN Time Seen by Provider: 08/25/22 05:39 Source: patient Mode of arrival: Ambulatory Limitations: No Limitations - History of Present Illness Initial comments: 61-year-old black male with a past medical history of cirrhosis of the liver, gallstones, and kidney stones presents to the emergency department for evaluation of 1 week history of bilateral lower extremity edema. He states that at his job, he stands often swelling to his bilateral in the evening past medical he states that swelling has improved some overnight but gets worse again when he gets up in the daytime. He states that his bilateral leg have been very itchy and he scratches a lot and has few open areas from where he scratched so much. He denies fever, shortness of breath, chest pain, abdominal pain, nausea, and vomiting. MD Complaint: extremity swelling -: Gradual, week(s) (1) Location: bilateral lower extremity History of Same: No -: No myalgia, No arthralgia, No fever, No associated dyspnea, No associated chest pain Severity scale (0 -10): 3 Quality: aching Consistency: intermittent Associated Symptoms: denies: chest pain, shortness of breath, fever, myalgias, arthralgias, rash - Related Data Previous Rx's Medication Instructions Recorded Last Taken Type Docusate Sodium [Colace] 100 mg PO BID #10 capsule 12/08/20 Unknown Rx Famotidine [Pepcid] 20 mg PO QDAY #30 tablet 01/21/21 Unknown Rx Luci Root [Luci] 250 mg PO QID PRN #30 capsule 01/21/21 Unknown Rx Amoxicillin [Amoxicillin TAB] 875 mg PO BID #14 tablet 08/22/21 Unknown Rx Zinc/Xylo/Neosp/Vit A&D [Butt 50 applic TP PRN PRN #1 jar 10/11/21 Unknown Rx Paste/Lidocaine] Acetaminophen [Non-Aspirin Extra 500 mg PO Q6HR PRN #30 tablet 06/09/22 Unknown Rx Strength] Famotidine [Pepcid] 20 mg PO BID #60 tablet 06/09/22 Unknown Rx Multivitamin with Folic Acid [[facility] 400 mcg PO QDAY #30 tablet 06/09/22 Unknown Rx One Daily Essential Tablet] chlordiazePOXIDE [Librium] 25 mg PO Q6H PRN #25 capsule 06/09/22 Unknown Rx Acetaminophen/Codeine [Tylenol 1 tab PO Q6H PRN #12 tab 08/25/22 Unknown Rx /Codeine # 3 tab] Furosemide [Lasix] 40 mg PO DAILY 5 Days #5 tab 08/25/22 Unknown Rx Potassium Chloride [K-Dur] 20 meq PO BID #10 tab 08/25/22 Unknown Rx cephALEXin [Keflex] 500 mg PO Q12HR 7 Days #14 cap 08/25/22 Unknown Rx Allergies Allergy/AdvReac Type Severity Reaction Status Date / Time No Known Allergies Allergy Verified 01/21/21 10:13 ED Review of Systems ROS: Stated complaint: ANKLE SWOLLEN Other details as noted in HPI Comment: All other systems reviewed and negative Constitutional: denies: chills, fever Eyes: denies: vision change Respiratory: denies: cough, orthopnea, shortness of breath, SOB with exertion, SOB at rest, stridor, wheezing Cardiovascular: edema. denies: chest pain, palpitations, dyspnea on exertion, orthopnea, syncope, paroxysmal nocturnal dyspnea Gastrointestinal: denies: abdominal pain, nausea, vomiting, diarrhea, hematem esis, melena, hematochezia Genitourinary: denies: urgency, dysuria Musculoskeletal: denies: back pain Skin: denies: rash, lesions Neurological: denies: headache, weakness Psychiatric: denies: anxiety, depression ED Past Medical Hx - Past Medical History Hx Kidney Stones: Yes Additional medical history: Hx of gallstones, cirrhosis of the liver - Social History Smoking Status: Current Every Day Smoker Substance Use Type: Alcohol - Medications Home Medications: Home Medications Medication Instructions Recorded Confirmed Last Taken Type Docusate Sodium [Colace] 100 mg PO BID #10 capsule 12/08/20 Unknown Rx Famotidine [Pepcid] 20 mg PO QDAY #30 tablet 01/21/21 Unknown Rx Luci Root [Luci] 250 mg PO QID PRN #30 capsule 01/21/21 Unknown Rx Amoxicillin [Amoxicillin TAB] 875 mg PO BID #14 tablet 08/22/21 Unknown Rx Zinc/Xylo/Neosp/Vit A&D [Butt 50 applic TP PRN PRN #1 jar 10/11/21 Unknown Rx Paste/Lidocaine] Acetaminophen [Non-Aspirin Extra 500 mg PO Q6HR PRN #30 tablet 06/09/22 Unknown Rx Strength] Famotidine [Pepcid] 20 mg PO BID #60 tablet 06/09/22 Unknown Rx Multivitamin with Folic Acid [[facility] 400 mcg PO QDAY #30 tablet 06/09/22 Unknown Rx One Daily Essential Tablet] chlordiazePOXIDE [Librium] 25 mg PO Q6H PRN #25 capsule 06/09/22 Unknown Rx Acetaminophen/Codeine [Tylenol 1 tab PO Q6H PRN #12 tab 08/25/22 Unknown Rx /Codeine # 3 tab] Furosemide [Lasix] 40 mg PO DAILY 5 Days #5 tab 08/25/22 Unknown Rx Potassium Chloride [K-Dur] 20 meq PO BID #10 tab 08/25/22 Unknown Rx cephALEXin [Keflex] 500 mg PO Q12HR 7 Days #14 cap 08/25/22 Unknown Rx ED Physical Exam - General Limitations: No Limitations General appearance: alert, in no apparent distress - Head Head exam: Present: atraumatic, normocephalic - Eye Eye exam: Present: normal appearance. Absent: conjunctival injection, periorbital swelling, periorbital tenderness - ENT ENT exam: Present: normal exam - Neck Neck exam: Present: normal inspection, full ROM. Absent: tenderness, ly mphadenopathy - Respiratory Respiratory exam: Present: normal lung sounds bilaterally. Absent: respiratory distress, wheezes, rales, rhonchi, stridor, chest wall tenderness - Cardiovascular Cardiovascular Exam: Present: regular rate, normal heart sounds - GI/Abdominal GI/Abdominal exam: Present: soft, normal bowel sounds. Absent: distended, tenderness, guarding, rebound, rigid - Expanded Lower Extremity Exam Left Lower Leg exam: Present: tenderness, swelling, abrasion, erythema. Absent: laceration, ecchymosis, deformity, crepidus, dislocation Ankle exam: Present: full ROM, tenderness, swelling, abrasion, erythema. Absent: laceration, ecchymosis, deformity, crepidus, dislocation Foot/Toe exam: Present: full ROM, tenderness, swelling. Absent: abrasion, erythema Neuro vascular tendon exam: Present: no vascular compromise. Absent: pulse d eficit, abnormal cap refill, extremity cold to touch, pallor Gait: Positive: observed and limited by pain Right Lower Leg exam: Present: full ROM, tenderness, swelling, abrasion, erythema. Absent: laceration, ecchymosis, deformity, crepidus, dislocation Ankle exam: Present: full ROM, tenderness, swelling, abrasion, erythema. Absent: laceration, ecchymosis, deformity Foot/Toe exam: Present: full ROM, tenderness, swelling. Absent: abrasion, laceration Neuro vascular tendon exam: Present: no vascular compromise. Absent: pulse deficit, abnormal cap refill, extremity cold to touch, pallor - Back Exam Back exam: Present: normal inspection. Absent: CVA tenderness (R), CVA tenderness (L) - Neurological Exam Neurological exam: Present: alert, oriented X3 - Psychiatric Psychiatric exam: Present: normal affect, normal mood - Skin Skin exam: Present: warm, dry, intact, normal color ED Course Vital Signs 08/24/22 16:11 Temperature 98 F Pulse Rate 75 Respiratory 18 Rate Blood Pressure 121/63 [Left] O2 Sat by Pulse 98 Oximetry ED Medical Decision Making - Lab Data Result diagrams: 08/24/22 19:48 08/24/22 19:48 - Radiology Data Radiology results: report reviewed, image reviewed Chest x-ray: IMPRESSION: 1. Central pulmonary venous congestion, possibly secondary to mild CHF. No ailyn pulmonary edema or other acute chest process. - Medical Decision Making 61-year-old black male with a past medical history of cirrhosis of the liver, gallstones, and kidney stones presents to the emergency department for evaluation of 1 week history of bilateral lower extremity edema. He states that at his job, he stands often swelling to his bilateral in the evening past medi miller he states that swelling has improved some overnight but gets worse again when he gets up in the daytime. He states that his bilateral leg have been very itchy and he scratches a lot and has few open areas from where he scratched so much. He denies fever, shortness of breath, chest pain, abdominal pain, nausea, and vomiting. Physical exam consistent with bilateral lower leg cellulitis likely secondary to scratching because of several abrasions noted to area but no purulent drainage noted. Patient will be treated with 7-day course of Keflex. Chest x-ray positive for mild pulmonary vascular. Patient be treated with 5-day course of Lasix to improve swelling and pulmonary congestion with KCl replacement. Patient is advised to follow-up with his primary care provider for further evalu ation and management see department as needed. Laboratory Results - last 24 hr 08/24/22 08/24/22 08/24/22 19:48 19:48 19:48 WBC 4.2 L RBC 3.27 L Hgb 11.9 Hct 36.3 MCV 111 H MCH 36 H MCHC 33 RDW 15.8 H Plt Count 80 L Lymph % (Auto) 31.6 [place] % (Auto) 14.5 H Eos % (Auto) 2.8 Baso % (Auto) 1.1 Lymph # (Auto) 1.3 [place] # (Auto) 0.6 Eos # (Auto) 0.1 Baso # (Auto) 0.0 Seg Neutrophils % 50.0 Seg Neutrophils # 2.1 Sodium 140 Potassium 3.2 L Chloride 107.3 H Carbon Dioxide 21 L Anion Gap 15 BUN 7 L Creatinine 0.6 L Estimated GFR > 60 BUN/Creatinine Ratio 12 Glucose 82 Calcium 8.5 Total Bilirubin 3.70 H AST 99 H ALT 39 Alkaline Phosphatase 266 H Total Creatine Kinase 303 H Total Protein 8.1 Albumin 2.4 L Albumin/Globulin Ratio 0.4 Lipase 76 H Urine Color Urine Turbidity Urine pH Ur Specific [place] Urine Protein Urine Glucose (UA) Urine Ketones Urine Blood Urine Nitrite Urine Bilirubin Urine Urobilinogen Ur Leukocyte Esterase Urine WBC (Auto) Urine RBC (Auto) U Epithel Cells (Auto) Urine Bacteria (Auto) Urine Opiates Screen Urine Methadone Screen Ur Barbiturates Screen Ur Phencyclidine Scrn Ur Amphetamines Screen U Benzodiazepines Scrn Urine Cocaine Screen U Marijuana (THC) Screen Drugs of Abuse Note Plasma/Serum Alcohol 0.04 08/24/22 08/24/22 Unknown Unknown WBC RBC Hgb Hct MCV MCH MCHC RDW Plt Count Lymph % (Auto) [place] % (Auto) Eos % (Auto) Baso % (Auto) Lymph # (Auto) [place] # (Auto) Eos # (Auto) Baso # (Auto) Seg Neutrophils % Seg Neutrophils # Sodium Potassium Chloride Carbon Dioxide Anion Gap BUN Creatinine Estimated GFR BUN/Creatinine Ratio Glucose Calcium Total Bilirubin AST ALT Alkaline Phosphatase Total Creatine Kinase Total Protein Albumin Albumin/Globulin Ratio Lipase Urine Color [place] Urine Turbidity Clear Urine pH 6.0 Ur Specific [place] 1.014 Urine Protein <15 mg/dl Urine Glucose (UA) Neg Urine Ketones Neg Urine Blood Neg Urine Nitrite Neg Urine Bilirubin Neg Urine Urobilinogen 4.0 Ur Leukocyte Esterase Tr Urine WBC (Auto) 4.0 Urine RBC (Auto) 1.0 U Epithel Cells (Auto) 3.0 Urine Bacteria (Auto) 1+ Urine Opiates Screen Negative Urine Methadone Screen Negative Ur Barbiturates Screen Negative Ur Phencyclidine Scrn Negative Ur Amphetamines Screen Negative U Benzodiazepines Scrn Negative Urine Cocaine Screen Negative U Marijuana (THC) Screen Negative Drugs of Abuse Note Disclamer Plasma/Serum Alcohol Critical care attestation.: If time is entered above; I have spent that time in minutes in the direct care of this critically ill patient, excluding procedure time. ED Disposition Clinical Impression: Hypokalemia, Pulmonary congestion, Localized swelling of both lower extremities Cellulitis Qualifiers: Site of cellulitis: extremity Site of cellulitis of extremity: lower extremity Laterality: unspecified laterality Qualified Code(s): L03.119 - Cellulitis of unspecified part of limb Disposition: 01 HOME / SELF CARE / HOMELESS Is pt being admited?: No Does the pt Need Aspirin: No Condition: Stable Instructions: Hypokalemia, Cellulitis, Adult, [id number], Potassium Content of Foods, Pulmonary Edema, [id number] Additional Instructions: Take medications as prescribed. Follow-up with your primary care provider if no improvement or worsening symptoms. Return to the emergency department as needed. Prescriptions: Potassium Chloride [K-Dur] 20 meq PO BID #10 tab cephALEXin [Keflex] 500 mg PO Q12HR 7 Days #14 cap Furosemide [Lasix] 40 mg PO DAILY 5 Days #5 tab Acetaminophen/Codeine [Tylenol /Codeine # 3 tab] 1 tab PO Q6H PRN #12 tab PRN Reason: Pain, Moderate (4-6) Referrals: HARRY STONER MD [Staff Physician] - 3-5 Days Forms: Work/School Release Form(ED) Time of Disposition: 07:01
[2022-08-25 08:57] VITALS: BP 153/86
== END 2022-08-25 08:55 | disposition home or self-care (01) ==
LOC: ED 15:19
DX: L03.116 Cellulitis of left lower limb (principal); L03.115 Cellulitis of right lower limb; R60.0 Localized edema; E87.6 Hypokalemia; R09.89 Other specified symptoms and signs involving the circulatory and respiratory systems; F17.200 Nicotine dependence, unspecified, uncomplicated; Z72.89 Other problems related to lifestyle; Z79.899 Other long term (current) drug therapy
CPT/HCPCS: 36415; 71046; 80053; 80307; 80320; 81001; 82550; 83690; 85025; 99284; G0480